=== PATIENT | female | born 1960 | race Caucasian/White ===

== ENCOUNTER 2016-12-24 00:17 | Emergency (ER) | payer OTHER ==
[~2016-12-24] VITALS: Ht 167.6 cm; Wt 82.1 kg
[~2016-12-24 00:17] MED LIST: /ADVA50050; /ADVA50050 IN; /CELE20CA; /CELE20CA OR; /ESOM40CA; /ESOM40CA OR; ALBU17IN2; ALBU83IN; ASPI81TA83 OR; Alpha Lipoic Acid PO; BABY81CH; BIOTPOW20 PO; CETI10TA; CETI10TA OR; DETR4CAP; DETR4CAP OR; FOLI5CAP; FOLI5CAP OR; GLUC500T3; GLUC500T3 OR; GLUCOSAMINE; INSULIN PUMP; INSULIN PUMP SC; LIDO5DIS; LIDO5DIS EX; LISI10TA4; LISI10TA4 OR; METH2.5T; METH2.5T OR; NAPR500T; OYST500T; OYST500T OR; PRED10TA2; PRED5TAB; ROBA500T; ROBA750T; ROBA750T OR; SING10TA31; SING10TA31 OR; SYMLIN INJ; THERGRAN; THERGRAN OR; TRAM50TA2; TRAM50TA2 OR; VIT D 2000; VITA100T OR; VITA200C; VITA400C OR; VITA500C OR; VITA500T; VOLT1GEL; VOLT1GEL EX; VOLT75TA; VYTO10TA5; VYTO10TA5 OR; [UNRECOGNIZED DRUG - OTHER] SC; plaquenil PO; vit b 12 PO
[2016-12-24] MEDS ORDERED: ONDANSETRON 4 MG ORAL DISINTEGRATING TAB (S0181) PO ONE (01:45)
[2016-12-24] MEDS ORDERED: NS 500 ML IV ONE ×2 (01:45→03:00)
[2016-12-24] MEDS ORDERED: ONDANSETRON 4MG/2ML VIAL (J2405) IV ONE (01:45)
[2016-12-24 01:47] LABS: BASO % 0.3 % (0.0-1.0); EOS # 0.1 K/mm3 (0.0-0.50); EOS % 1.1 % (0.0-3.0); LARGE UNSTAINED CELL # 0.1 K/mm3 (0.0-0.4); LARGE UNSTAINED CELL % 0.8 % (0.0-4.0); LYMPH # 0.3 K/mm3 (1.5-4.5); LYMPH % 3.1 % (24.0-44.0); MEAN CORPUSCULAR HEMOGLOBIN 28.3 pg (27.0-33.0); MEAN CORPUSCULAR HGB CONC 32.2 g/dl (32.0-36.5); MEAN CORPUSCULAR VOLUME 87.9 fl (80.0-96.0); MONO # 0.4 K/mm3 (0.0-0.8); MONO % 4.3 % (0.0-5.0); NEUTROPHILS # 7.5 K/mm3 (1.8-7.7); NEUTROPHILS % 90.5 % (36.0-66.0); PLATELET COUNT, AUTOMATED 241 k/mm3 (150-450); RED CELL DISTRIBUTION WIDTH 12.7 % (11.5-14.5); WHITE BLOOD COUNT 8.3 K/mm3 (4.0-10.0)
[2016-12-24 02:31] LABS: ALBUMIN 3.9 GM/DL (3.2-5.2); ALBUMIN/GLOBULIN RATIO 1.18 (1.00-1.93); ALKALINE PHOSPHATASE 76 U/L (45-117); ALT/SGPT 49 U/L (12-78); AMYLASE 34 U/L (25-115); ANION GAP 10 MEQ/L (8-16); AST/SGOT 41 U/L (15-37); BILIRUBIN,DIRECT 0.2 MG/DL (0.0-0.2); BILIRUBIN,TOTAL 0.7 MG/DL (0.2-1.0); BLOOD UREA NITROGEN 23 MG/DL (7-18); CARBON DIOXIDE LEVEL 26 MEQ/L (21-32); CHLORIDE LEVEL 107 MEQ/L (98-107); CREATININE FOR GFR 0.89 MG/DL (0.55-1.02); GLOMERULAR FILTRATION RATE > 60.0 (>51); GLUCOSE, FASTING 220 MG/DL (70-105); SODIUM LEVEL 143 MEQ/L (136-145); TOTAL PROTEIN 7.2 GM/DL (6.4-8.2)
[2016-12-24] MEDS ORDERED: REGL10TA6 PO (03:08)
[2016-12-24 03:35] VITALS: BP 114/58
== END 2016-12-24 03:36 | disposition home or self-care (01) ==
LOC: M ED 03:15
DX: A09 Infectious gastroenteritis and colitis, unspecified (principal); E10.9 Type 1 diabetes mellitus without complications; J45.909 Unspecified asthma, uncomplicated; Z88.8 Allergy status to other drugs, medicaments and biological substances; Z79.82 Long term (current) use of aspirin; Z79.899 Other long term (current) drug therapy
CPT/HCPCS: 80048; 80076; 82150; 83690; 85025; 96374; 99282; J2405

== ENCOUNTER → 2017-01-14 | Outpatient (REF) | payer OTHER ==
[~2017-01-14] MED LIST changes: +REGL10TA6 PO
[2017-01-14 12:48] LABS: BASO % 0.8 % (0.0-1.0); EOS # 0.1 K/mm3 (0.0-0.50); EOS % 1.6 % (0.0-3.0); LARGE UNSTAINED CELL # 0.1 K/mm3 (0.0-0.4); LARGE UNSTAINED CELL % 1.4 % (0.0-4.0); LYMPH # 1.5 K/mm3 (1.5-4.5); LYMPH % 29.1 % (24.0-44.0); MEAN CORPUSCULAR HEMOGLOBIN 27.9 pg (27.0-33.0); MEAN CORPUSCULAR HGB CONC 31.2 g/dl (32.0-36.5); MEAN CORPUSCULAR VOLUME 89.7 fl (80.0-96.0); MONO # 0.4 K/mm3 (0.0-0.8); NEUTROPHILS # 3.1 K/mm3 (1.8-7.7); NEUTROPHILS % 60.1 % (36.0-66.0); PLATELET COUNT, AUTOMATED 256 k/mm3 (150-450); WHITE BLOOD COUNT 5.2 K/mm3 (4.0-10.0)
[2017-01-14 12:49] LABS: ALBUMIN 3.7 GM/DL (3.2-5.2); ALBUMIN/GLOBULIN RATIO 1.28 (1.00-1.93); ALKALINE PHOSPHATASE 73 U/L (45-117); ALT/SGPT 57 U/L (12-78); ANION GAP 7 MEQ/L (8-16); AST/SGOT 31 U/L (15-37); BILIRUBIN,TOTAL 0.4 MG/DL (0.2-1.0); BLOOD UREA NITROGEN 21 MG/DL (7-18); CALCIUM LEVEL 9.1 MG/DL (8.5-10.1); CARBON DIOXIDE LEVEL 29 MEQ/L (21-32); CHLORIDE LEVEL 108 MEQ/L (98-107); CHOLESTEROL LEVEL 144 MG/DL (<200); CREATININE FOR GFR 0.73 MG/DL (0.55-1.02); GLOMERULAR FILTRATION RATE > 60.0 (>51); GLUCOSE, FASTING 143 MG/DL (70-105); POTASSIUM SERUM 4.2 MEQ/L (3.5-5.1); SODIUM LEVEL 144 MEQ/L (136-145); TOTAL PROTEIN 6.6 GM/DL (6.4-8.2); TRIGLYCERIDES LEVEL 65 MG/DL (<150)
== END ==
LOC: M LABDRAW1 11:33
PROVIDERS: ATTEND Family Medicine
DX: E10.9 Type 1 diabetes mellitus without complications (principal)

== ENCOUNTER 2017-05-14 07:29 | Inpatient (IN) | payer OTHER ==
[~2017-05-14] VITALS: Ht 165.1 cm; Wt 87.1 kg
[2017-05-14] MEDS ORDERED: MONT10TA2 PO (07:53)
[2017-05-14] MEDS ORDERED: INSUH10VL SC (07:53)
[2017-05-14] MEDS ORDERED: METH75TA PO (07:53)
[2017-05-14] MEDS ORDERED: GLUC750T2 PO (07:53)
[2017-05-14] MEDS ORDERED: LISI10TA4 PO (07:53)
[2017-05-14] MEDS ORDERED: IPRA6SP (07:53)
[2017-05-14] MEDS ORDERED: OLOP1DRO OU (07:53)
[2017-05-14] MEDS ORDERED: GLUC1KIT SC (07:53)
[2017-05-14] MEDS ORDERED: TOLT1CAP PO (07:53)
[2017-05-14] MEDS ORDERED: SIMV20TA2 PO (07:53)
[2017-05-14] MEDS ORDERED: TRAM50TA2 PO (07:53)
[2017-05-14] MEDS ORDERED: CELE1CAP9 PO (07:53)
[2017-05-14] MEDS ORDERED: HYDR200T3 PO ×2 (07:53→09:38)
[2017-05-14] MEDS ORDERED: CETI10TA PO (07:53)
[2017-05-14] MEDS ORDERED: LIDO1PAD TOP (07:53)
[2017-05-14] MEDS ORDERED: ZETI10TA30 PO (07:53)
[2017-05-14] MEDS ORDERED: ASPI81TA18 PO (07:53)
[2017-05-14] MEDS ORDERED: NS 1,000 ML IV ONE ×2 (08:45→12:15)
[2017-05-14] MEDS ORDERED: ONDANSETRON 4MG/2ML VIAL (J2405) IV ONE (08:45)
[2017-05-14] MEDS: MORPHINE 2 MG/ML 1ML SYRINGE IV PRN ×2 (08:57→11:49)
[2017-05-14 08:58] LABS: BASO % 0.2 % (0.0-1.0); EOS % 0.3 % (0.0-3.0); LARGE UNSTAINED CELL # 0.1 K/mm3 (0.0-0.4); LARGE UNSTAINED CELL % 0.4 % (0.0-4.0); LYMPH # 0.6 K/mm3 (1.5-4.5); LYMPH % 4.5 % (24.0-44.0); MEAN CORPUSCULAR HEMOGLOBIN 29.5 pg (27.0-33.0); MEAN CORPUSCULAR HGB CONC 32.8 g/dl (32.0-36.5); MONO # 0.8 K/mm3 (0.0-0.8); MONO % 6.3 % (0.0-5.0); NEUTROPHILS # 10.4 K/mm3 (1.8-7.7); NEUTROPHILS % 88.3 % (36.0-66.0); PLATELET COUNT, AUTOMATED 263 k/mm3 (150-450); RED CELL DISTRIBUTION WIDTH 13.2 % (11.5-14.5); WHITE BLOOD COUNT 11.8 K/mm3 (4.0-10.0)
[2017-05-14] MEDS ORDERED: LIDOCAINE 5% (LIDODERM) PATCH TOP SCH (09:00)
[2017-05-14] MEDS: OLOPATADINE 0.1% OPHTH SOL 5ML(PATANOL) OU SCH (09:00)
[2017-05-14 09:19] LABS: ALBUMIN/GLOBULIN RATIO 1.33 (1.00-1.93); ALKALINE PHOSPHATASE 88 U/L (45-117); ALT/SGPT 50 U/L (12-78); AMYLASE 51 U/L (25-115); ANION GAP 8 MEQ/L (8-16); AST/SGOT 26 U/L (15-37); BILIRUBIN,DIRECT 0.2 MG/DL (0.0-0.2); BILIRUBIN,TOTAL 0.8 MG/DL (0.2-1.0); BLOOD UREA NITROGEN 25 MG/DL (7-18); CALCIUM LEVEL 9.6 MG/DL (8.5-10.1); CARBON DIOXIDE LEVEL 26 MEQ/L (21-32); CHLORIDE LEVEL 102 MEQ/L (98-107); CREATININE FOR GFR 0.95 MG/DL (0.55-1.02); GLOMERULAR FILTRATION RATE > 60.0 (>51); GLUCOSE, FASTING 357 MG/DL (70-105); SODIUM LEVEL 136 MEQ/L (136-145)
[2017-05-14 09:37] LABS: INR 0.87
[2017-05-14] MEDS ORDERED: ASCO500T PO (09:38)
[2017-05-14] MEDS ORDERED: ISOVUE-370 76% 100ML VIAL (Q9967) As Ordered ONE (09:59)
--- NOTE | 2017-05-14 10:04 | REP ---
PA and lateral chest: There are no comparisons. The lung goldstein are clear. The cardiac size is normal The rosina, mediastinum, and bony thorax are unremarkable. Impression: Negative PA and lateral chest. Signed by Mauri Hightower MD 05/14/2017 09:54 A
--- NOTE | 2017-05-14 11:08 | REP ---
CT ABDOMEN AND PELVIS WITH IV CONTRAST: TECHNIQUE: Axial contrast enhanced images from the lung bases to the pubic symphysis using 100 mL Isovue 370 intravenous contrast material with multiplanar reformations. Visualized lung bases demonstrates no evidence of acute infiltrate. The liver, spleen, adrenals, pancreas, and left kidney are unremarkable. Right kidney demonstrates a small cyst in the lower pole cortex measuring about 1.1 cm in diameter. There is no hydronephrosis bilaterally. There is no abdominal aortic aneurysm with mild scattered atherosclerotic calcifications. There is no adenopathy. There is no free air or free fluid. There is diffuse thickening of the left transverse colon and also of the descending colon compatible with colitis. No other area of bowel wall thickening is seen. In the pelvis there is a cyst of the left ovary measuring 3.1 cm in maximum diameter. No other pelvic mass is seen. Urinary bladder is unremarkable. IMPRESSION: Diffuse thickening of the left transverse colon and descending colon compatible with colitis. No free air or free fluid. Left ovarian cyst measures 3.1 cm in maximum diameter. Signed by Mauri Henning MD 05/14/2017 03:28 P
[2017-05-14] MEDS ORDERED: metroNIDAZOLE 500 MG in APPROPRIATE DILUENT 1 EA IV ONE (12:15)
--- NOTE | 2017-05-14 13:05 | HPEPDOC ---
Medical History and Physical Date of Admission 05/14/17 History and Physical ATTENDING: Dr. Min PCP: Dr Guillermina Mcfarlane CC: N/V/D HPI: 57yoF with a past medical history significant for IDDM on insulin pump as managed by Connie, AIDA, HTN, RA, Asthma who states she noticed abdominal cramping around midnight. Subsequently began to have N/V about every 30 min followed by diarrhea. Tried Imodium which was ineffective. Reported to ED for evaluation with assistance of her Dtr. In ED Pt had persistent N/V, abdominal discomfort and diarrhea with BRB noted. Has felt chilled. Denies any fevers, weakness, fatigue, LEMOS, CP, SOB, cough, palpitations, changes in bladder habits. Upon presentation to the hospital the patient was found to have Colitis, thus the hospitalist team was consulted. PMHx: IDDM. Uses pump as per Connie. Asthma. Follows with Dr Burnette. allergic rhinitis. RA. [place]. Chronic back pain. Dr [facility] OAB HTN Dyslipidemia PSHX: CTR Colonoscopy 09/01 Iván. Nml. SOCHX: Resides in: [facility] Marital Status: Kids: one Employment: Works at [employer] PT Tobacco use: denies ETOH: denies Illicit Drugs: Denies Recent travel: denies Advanced directives: denies FAMHX: Mother: Alive, Lupus, PUD. Father: stomach Ca Siblings: Alive, well Children: Alive, well Unexpected deaths due to medical reasons: None. ROS: As noted in HPI, otherwise 11pt ROS of systems reviewed and remarkable only for LMP NA, post menopausal. PE: GEN: 57yoF, appears stated age. Well-nourished, well developed. No acute distress. Alert and oriented x 3. Pleasant, interactive. HEENT: Normocephalic, atraumatic. Pupils are equal, round, and reactive to light. Extraocular movements are intact. No nystagmus appreciated. Sclera are nonicteric. Conjunctiva without injection. Nose midline. Nasal turbinates without bogginess. No facial asymmetry. Moist mucous membranes. Dentition fair. Pharynx pink and moist, no cobblestoning. Neck supple, trachea midline. No lymphadenopathy or thyromegaly appreciated. CHEST: Regular rate and rhythm, +S1, +S2 LUNGS: Clear to auscultation bilaterally. No wheezes, rales, or rhonchi. Breathing appears symmetric and easy. Patient is speaking in full sentences. No accessory muscle use. ABD: Round, soft, non-tender, non-distended. +Bowel sounds throughout. No rebound or guarding. No costovertebral angle tenderness. EXT: Pulses 2+ bilaterally dorsalis pedis and radial. No lower extremity edema appreciated. SKIN: [place], dry, warm. Capillary refill <2sec. No rashes. NEURO: Alert and oriented x 3. Cranial nerves III-XII are intact. No focal deficits appreciated. CXR: Negative PA and lateral chest. CT: Diffuse thickening of the left transverse colon and descending colon compatible with colitis. No free air or free fluid. Left ovarian cyst measures 3.1 cm in maximum diameter. BLOOD CULTURES: pending A&P: 57yoF with a past medical history significant for IDDM on insulin pump as managed by AIDA Rosales, HTN, RA, Asthma who states she noticed abdominal cramping around midnight. Subsequently began to have N/V about every 30 min followed by diarrhea. Tried Imodium which was ineffective. Reported to ED for evaluation with assistance of her Dtr. In ED Pt had persistent N/V, abdominal discomfort and diarrhea with BRB noted. Has felt chilled. 1. The patient will be admitted to M/S for at least [address] Min's service. Pt is discussed with Dr Capps. 2. Colitis. UA/UC, BC, GI panel pending. IVF at 100cc/hr, Clear liquids, IV Zofran prn. Continue with IV Cipro/Flagyl. Pt with episode of Colitis 01/04 as well. Last colonoscopy 09/01 reported to be normal. 3. IDDM. Pt to continue to utilize pump. Temporarily hold ASA. 4. HTN. Lisinopril with hold parameters. 5. Dyslipidemia. Cont Statin/Zetia 6. Asthma/Allergies. Cont outpt regimen. 7. Chronic Back pain. Tramadol TID/Robaxin/Lidoderm patch. Temporarily hold Celebrex. 8. RA. Cont Hydroxychloroquine. 9. OAB. Cont outpt regimen. DVT prophylaxis. The patient is a Full code. Vital Signs Vital Signs Date Time Temp Pulse Resp B/P (MAP) Pulse Ox O2 Delivery O2 Flow Rate FiO2 7/25/17 12:47 16 05/14/17 09:21 05/14/17 07:40 97.4 100 100 Room Air Laboratory Data Labs 24H Laboratory Tests 2 05/14/17 08:46: White Blood Count 11.8H, Red Blood Count 4.41, Hemoglobin 13.0, Hematocrit 39.7 , Mean Corpuscular Volume 90.0, Mean Corpuscular Hemoglobin 29.5, Mean Corpuscular Hemoglobin Concent 32.8, Red Cell Distribution Width 13.2, Platelet Count 263, Neutrophils (%) (Auto) 88.3H, Lymphocytes (%) (Auto) 4.5L, Monocytes (%) (Auto) 6.3H, Eosinophils (%) (Auto) 0.3, Basophils (%) (Auto) 0.2, Neutrophils # (Auto) 10.4H, Lymphocytes # (Auto) 0.6L, Monocytes # (Auto) 0.8, Eosinophils # (Auto) 0.0, Basophils # (Auto) 0.0, Large Unclassified Cells % 0.4 , Large Unclassified Cells # 0.1, Prothrombin Time 11.9L, Prothromb Time International Ratio 0.87, Activated Partial Thromboplast Time 21.7L, Anion Gap 8 , Glomerular Filtration Rate > 60.0, Lactic Acid Level 1.9, Calcium Level 9.6, Aspartate Amino Transf (AST/SGOT) 26, Alanine Aminotransferase (ALT/SGPT) 50, Alkaline Phosphatase 88, Total Bilirubin 0.8, Direct Bilirubin 0.2, Total Protein 7.0, Albumin 4.0, Albumin/Globulin Ratio 1.33, Amylase Level 51, Lipase 122 CBC/BMP Laboratory Tests 05/14/17 08:46 Red Blood Count 4.41, Mean Corpuscular Volume 90.0, Mean Corpuscular Hemoglobin 29.5, Mean Corpuscular Hemoglobin Concent 32.8, Red Cell Distribution Width 13.2 , Neutrophils (%) (Auto) 88.3 H, Lymphocytes (%) (Auto) 4.5 L, Monocytes (%) ( Auto) 6.3 H, Eosinophils (%) (Auto) 0.3, Basophils (%) (Auto) 0.2, Neutrophils # (Auto) 10.4 H, Lymphocytes # (Auto) 0.6 L, Monocytes # (Auto) 0.8, Eosinophils # (Auto) 0.0, Basophils # (Auto) 0.0 Microbiology Microbiology 05/14/17 Blood Culture, Received Pending 05/14/17 Blood Culture, Received Pending Home Medications Scheduled (Olopatadine HCl) 0.1 % Kevin, 2 DROP OU DAILY (Lidocaine) 5 % Pad, 1 PATCH TOP DAILY APPLIES TO BACK/SHOULDER (Glucosamine/Chondroitin T 750-600 mg) 1 Tab Tab, 1 TAB PO BID (Celecoxib) 200 Mg Cap, 200 MG PO DAILY (Aspirin EC Low Dose) 81 Mg Tab, 81 MG PO DAILY Ascorbic Acid (Ascorbic Acid) 500 Mg Tab, 500 MG PO DAILY Cetirizine HCl (Cetirizine HCl) 10 Mg Tab, 10 MG PO DAILY Ezetimibe (Zetia) 10 Mg Tab, 10 MG PO DAILY Hydroxychloroquine Sulfate (Hydroxychloroquine Sulfat) 200 Mg Tab, 200 MG PO Q2D 200MG ON ODD DAYS, 400MG ON EVEN DAYS Hydroxychloroquine Sulfate (Hydroxychloroquine Sulfat) 200 Mg Tab, 400 MG PO Q2D 200MG ON ODD DAYS, 400MG ON EVENS DAYS Insulin Aspart (Novolog) 100 U/Ml Inj, 1 DOSE SC ASDIRECTED VIA INSULIN PUMP Lisinopril (Lisinopril) 10 Mg Tab, 10 MG PO DAILY Methocarbamol (Methocarbamol) 750 Mg Tab, 750 MG PO TID Montelukast Sodium (Montelukast Sodium) 10 Mg Tab, 10 MG PO DAILY Simvastatin (Simvastatin) 20 Mg Tab, 20 MG PO DAILY Tolterodine Tartrate (Tolterodine Tartrate ER) 4 Mg Cap, 4 MG PO DAILY Tramadol HCl (Tramadol HCl) 50 Mg Tab, 50 MG PO TID Scheduled PRN Glucagon Rdna (Glucagon Emergency Kit) 1 Mg Kit, 1 DOSE SC for LOW BLOOD SUGAR Ipratropium [place] (Ipratropium [place]) 165 [place]/15 Ml Naspr, 1 SPRAY NA BID PRN for RUNNY NOSE Allergies Coded Allergies: Meloxicam (Verified Allergy, Intermediate, RASH, 01/19/13) Diclofenac (Verified Adverse Reaction, Intermediate, FLECTOR PATCH- ASTHMA , 01/19/13) Leatha Najera May 14, 2017 13:05
[2017-05-14] MEDS ORDERED: HumaLOG INSULIN (NovoLOG) PER UNIT SC PRN (13:15)
[2017-05-14] MEDS ORDERED: IPRATROPIUM 0.06% NASAL SPRAY 15 ML (ATROVENT) PRN (13:15)
[2017-05-14] MEDS ORDERED: ONDANSETRON 4MG/2ML VIAL (J2405) IV PRN (13:15)
[2017-05-14] MEDS ORDERED: CIPROFLOXACIN 400 MG in APPROPRIATE DILUENT 1 EA IV ONE (14:00)
[2017-05-14 15:10] VITALS: BP 136/88
[2017-05-14] MEDS: NS 1,000 ML IV SCH (15:21)
[2017-05-14] MEDS: CETIRIZINE (ZyrTEC) 10 MG TAB PO SCH (16:29)
[2017-05-14] MEDS: HYDROXYCHLOROQUINE 200 MG TAB PO SCH (16:29)
[2017-05-14] MEDS: EZETIMIBE 10 MG TAB (ZETIA) PO SCH (16:29)
[2017-05-14] MEDS: TOLTERODINE TARTRATE 2 MG LA CAP (DETROL LA) PO SCH (16:29)
[2017-05-14] MEDS: LISINOPRIL 10 MG TAB PO SCH (16:30)
[2017-05-14] MEDS: METHOCARBAMOL 750 MG TAB PO SCH ×2 (16:30→21:56)
[2017-05-14] MEDS: traMADol 50 MG TAB PO SCH ×2 (16:31→21:58)
[2017-05-14] MEDS: MONTELUKAST 10 MG TAB PO SCH (16:33)
[2017-05-14 20:00] VITALS: BP 134/66
[2017-05-14] MEDS: SIMVASTATIN 20 MG TAB PO SCH (21:57)
[2017-05-14] MEDS: LIDOCAINE 5% (LIDODERM) PATCH TOP SCH (21:58)
[2017-05-14] MEDS: metroNIDAZOLE 500 MG in APPROPRIATE DILUENT 1 EA IV SCH (22:16)
[2017-05-15] VITALS: BP 126/58
[2017-05-15] MEDS: NS 1,000 ML IV SCH ×3 (00:58→22:27)
[2017-05-15] MEDS: CIPROFLOXACIN 400 MG in APPROPRIATE DILUENT 1 EA IV SCH ×2 (00:58→12:37)
[2017-05-15] MEDS: metroNIDAZOLE 500 MG in APPROPRIATE DILUENT 1 EA IV SCH ×3 (05:47→22:26)
[2017-05-15 06:53] LABS: BASO % 0.2 % (0.0-1.0); EOS % 0.4 % (0.0-3.0); LARGE UNSTAINED CELL # 0.1 K/mm3 (0.0-0.4); LARGE UNSTAINED CELL % 0.5 % (0.0-4.0); LYMPH # 1.3 K/mm3 (1.5-4.5); LYMPH % 10.8 % (24.0-44.0); MEAN CORPUSCULAR HEMOGLOBIN 29.4 pg (27.0-33.0); MEAN CORPUSCULAR HGB CONC 32.6 g/dl (32.0-36.5); MONO # 0.7 K/mm3 (0.0-0.8); MONO % 6.1 % (0.0-5.0); NEUTROPHILS # 9.7 K/mm3 (1.8-7.7); PLATELET COUNT, AUTOMATED 236 k/mm3 (150-450); RED CELL DISTRIBUTION WIDTH 13.5 % (11.5-14.5); WHITE BLOOD COUNT 11.8 K/mm3 (4.0-10.0)
[2017-05-15 07:08] LABS: ALBUMIN 3.2 GM/DL (3.2-5.2); ALKALINE PHOSPHATASE 73 U/L (45-117); ALT/SGPT 37 U/L (12-78); ANION GAP 4 MEQ/L (8-16); AST/SGOT 21 U/L (15-37); BILIRUBIN,TOTAL 0.6 MG/DL (0.2-1.0); CALCIUM LEVEL 8.6 MG/DL (8.5-10.1); CARBON DIOXIDE LEVEL 28 MEQ/L (21-32); CHLORIDE LEVEL 107 MEQ/L (98-107); CREATININE FOR GFR 0.71 MG/DL (0.55-1.02); GLOMERULAR FILTRATION RATE > 60.0 (>51); GLUCOSE, FASTING 177 MG/DL (70-105); MAGNESIUM LEVEL 1.9 MG/DL (1.8-2.4); POTASSIUM SERUM 3.8 MEQ/L (3.5-5.1); SODIUM LEVEL 139 MEQ/L (136-145); TOTAL PROTEIN 6.4 GM/DL (6.4-8.2)
[2017-05-15 07:14] LABS: BLOOD UREA NITROGEN 9 MG/DL (7-18)
[2017-05-15 08:00] VITALS: BP 126/75
[2017-05-15] MEDS: **NOTE PATIENT COMMENT** MISC XX SCH (09:00)
[2017-05-15] MEDS: MONTELUKAST 10 MG TAB PO SCH (09:01)
[2017-05-15] MEDS: traMADol 50 MG TAB PO SCH ×3 (09:01→22:27)
[2017-05-15] MEDS: EZETIMIBE 10 MG TAB (ZETIA) PO SCH (09:02)
[2017-05-15] MEDS: CETIRIZINE (ZyrTEC) 10 MG TAB PO SCH (09:02)
[2017-05-15] MEDS: OLOPATADINE 0.1% OPHTH SOL 5ML(PATANOL) OU SCH (09:02)
[2017-05-15] MEDS: HYDROXYCHLOROQUINE 200 MG TAB PO SCH (09:03)
[2017-05-15] MEDS: TOLTERODINE TARTRATE 2 MG LA CAP (DETROL LA) PO SCH (09:03)
[2017-05-15] MEDS: LISINOPRIL 10 MG TAB PO SCH (09:05)
[2017-05-15] MEDS: METHOCARBAMOL 750 MG TAB PO SCH ×3 (09:05→22:27)
--- NOTE | 2017-05-15 12:47 | IPNPDOC ---
Subjective Date Seen The patient was seen on 05/15/17. Subjective Chief Complaint/HPI The patient is a 57-year-old female admitted with a reason for visit of Colitis , Gastroenteritis. Events since last encounter patient continues to have bloody stools but less than before and also getting thicker. had spike of fever last night , abdominal cramps getting better, no chest pain or sob , no cough or phlegm , continuing her insulin pump sugars are well controlled. Objective Physical Examination General Exam: Positive: Alert, Cooperative, No Acute Distress Eye Exam: Positive: PERRLA, Conjunctiva & lids normal, EOMI, Negative: Sclera icteric ENT Exam: Positive: Atraumatic, Mucous membr. moist/pink, Pharynx Normal Neck Exam: Positive: Supple, Negative: JVD, thyromegaly Chest Exam: Positive: Clear to auscultation, Normal air movement Heart Exam: Positive: Rate Normal, Regular Rhythm, Normal S1, Normal S2, Negative: Murmurs, Rubs Abdomen Exam: Positive: BS Hyperactive, Soft, Negative: Tenderness, Hepatospenomegaly Extremity Exam: Positive: Normal pulses, Negative: Clubbing, Cyanosis, Edema Skin Exam: Positive: Nl turgor and temperature, Negative: Rash, Breakdown Assessment /Plan Problems (1) Colitis Status: Acute Problem Text: will continue with cipro and flagyl , clear liquids and ivf. (2) Diabetes type I Status: Chronic Problem Text: continue with insulin pump with aspart insulin pateint adjusting her own pump. (3) Hypertension Status: Chronic (4) Rheumatoid arthritis Status: Chronic (5) Hyperlipidemia Status: Chronic (6) Overactive bladder Status: Chronic Plan/VTE VTE Prophylaxis Ordered?: Yes VS, I&O, 24H, [facility] Vital Signs/I&O Vital Signs Date Time Temp Pulse Resp B/P (MAP) Pulse Ox O2 Delivery O2 Flow Rate FiO2 05/15/17 09:05 126/95 05/15/17 09:01 16 Room Air 05/15/17 08:00 98.2 92 99 I&O- Last 24 Hours up to 6 AM 05/15/17 05:59 Intake Total 1500 ml Output Total 800 ml Balance 700 ml Laboratory Data 24H LABS Laboratory Tests 2 05/14/17 12:54: Urine Appearance CLEAR, Urine Color YELLOW, Urine pH 7.0, Urine Specific [place] 1.039, Urine Protein NEGATIVE, Urine Glucose (UA) 3+H, Urine Ketones 1+H , Urine Urobilinogen 0.2, Urine Bilirubin NEGATIVE, Urine Leukocyte Esterase NEGATIVE, Urine Blood NEGATIVE, Urine Nitrite NEGATIVE, Urine WBC (Auto) 0, Urine RBC (Auto) 0, Urine Hyaline Casts (Auto) 0, Urine Bacteria (Auto) 1+H, Urine Squamous Epithelial Cells 0, Urine Sperm (Auto) 05/15/17 06:42: White Blood Count 11.8H, Red Blood Count 3.97L, Hemoglobin 11.7L, Hematocrit 35.8L, Mean Corpuscular Volume 90.0, Mean Corpuscular Hemoglobin 29.4, Mean Corpuscular Hemoglobin Concent 32.6, Red Cell Distribution Width 13.5, Platelet Count 236, Neutrophils (%) (Auto) 82.0H, Lymphocytes (%) (Auto) 10.8L, Monocytes (%) (Auto) 6.1H, Eosinophils (%) (Auto) 0.4, Basophils (%) (Auto) 0.2 , Neutrophils # (Auto) 9.7H, Lymphocytes # (Auto) 1.3L, Monocytes # (Auto) 0.7, Eosinophils # (Auto) 0.0, Basophils # (Auto) 0.0, Large Unclassified Cells % 0.5 , Large Unclassified Cells # 0.1, Anion Gap 4L, Glomerular Filtration Rate > 60.0, Blood Urea Nitrogen 9#, Creatinine 0.71, Sodium Level 139, Potassium Level 3.8, Chloride Level 107, Carbon Dioxide Level 28, Calcium Level 8.6, Aspartate Amino Transf (AST/SGOT) 21, Alanine Aminotransferase (ALT/SGPT) 37, Alkaline Phosphatase 73, Total Bilirubin 0.6, Total Protein 6.4, Albumin 3.2, Magnesium Level 1.9, Albumin/Globulin Ratio 1.00 CBC/BMP Laboratory Tests 05/15/17 06:42 Red Blood Count 3.97 L, Mean Corpuscular Volume 90.0, Mean Corpuscular Hemoglobin 29.4, Mean Corpuscular Hemoglobin Concent 32.6, Red Cell Distribution Width 13.5, Neutrophils (%) (Auto) 82.0 H, Lymphocytes (%) (Auto) 10.8 L, Monocytes (%) (Auto) 6.1 H, Eosinophils (%) (Auto) 0.4, Basophils (%) ( Auto) 0.2, Neutrophils # (Auto) 9.7 H, Lymphocytes # (Auto) 1.3 L, Monocytes # ( Auto) 0.7, Eosinophils # (Auto) 0.0, Basophils # (Auto) 0.0, Calcium Level 8.6, Aspartate Amino Transf (AST/SGOT) 21, Alanine Aminotransferase (ALT/SGPT) 37, Alkaline Phosphatase 73, Total Bilirubin 0.6, Total Protein 6.4, Albumin 3.2 Microbiology Microbiology 05/14/17 Blood Culture - Preliminary, Resulted No growth after 24 hours . All specim... 05/14/17 Blood Culture - Preliminary, Resulted No growth after 24 hours . All specim... 05/14/17 Gastrointestinal Tract Panel (PCR) - Final, Complete 05/14/17 Urine Culture - Final, Complete CHAPINCITO KEN MD May 15, 2017 12:47
[2017-05-15 16:00] VITALS: BP 135/68
[2017-05-15 20:00] VITALS: BP 131/62
[2017-05-15] MEDS: LIDOCAINE 5% (LIDODERM) PATCH TOP SCH (22:26)
[2017-05-15] MEDS: SIMVASTATIN 20 MG TAB PO SCH (22:27)
[2017-05-16] VITALS: BP 121/65
[2017-05-16] MEDS: CIPROFLOXACIN 400 MG in APPROPRIATE DILUENT 1 EA IV SCH (01:59)
[2017-05-16] MEDS: metroNIDAZOLE 500 MG in APPROPRIATE DILUENT 1 EA IV SCH (06:45)
[2017-05-16 06:47] LABS: BASO % 0.8 % (0.0-1.0); EOS # 0.1 K/mm3 (0.0-0.50); EOS % 1.5 % (0.0-3.0); LARGE UNSTAINED CELL # 0.1 K/mm3 (0.0-0.4); LARGE UNSTAINED CELL % 1.5 % (0.0-4.0); MEAN CORPUSCULAR HEMOGLOBIN 29.6 pg (27.0-33.0); MEAN CORPUSCULAR HGB CONC 33.4 g/dl (32.0-36.5); MEAN CORPUSCULAR VOLUME 88.6 fl (80.0-96.0); MONO # 0.6 K/mm3 (0.0-0.8); NEUTROPHILS # 4.2 K/mm3 (1.8-7.7); NEUTROPHILS % 61.2 % (36.0-66.0); PLATELET COUNT, AUTOMATED 179 k/mm3 (150-450); RED CELL DISTRIBUTION WIDTH 13.1 % (11.5-14.5); WHITE BLOOD COUNT 6.9 K/mm3 (4.0-10.0)
[2017-05-16 07:00] LABS: ALBUMIN 2.8 GM/DL (3.2-5.2); ALBUMIN/GLOBULIN RATIO 1.04 (1.00-1.93); ALKALINE PHOSPHATASE 60 U/L (45-117); ALT/SGPT 31 U/L (12-78); ANION GAP 6 MEQ/L (8-16); AST/SGOT 21 U/L (15-37); BILIRUBIN,TOTAL 0.5 MG/DL (0.2-1.0); BLOOD UREA NITROGEN 7 MG/DL (7-18); CALCIUM LEVEL 8.3 MG/DL (8.5-10.1); CARBON DIOXIDE LEVEL 29 MEQ/L (21-32); CHLORIDE LEVEL 105 MEQ/L (98-107); CREATININE FOR GFR 0.63 MG/DL (0.55-1.02); GLOMERULAR FILTRATION RATE > 60.0 (>51); GLUCOSE, FASTING 85 MG/DL (70-105); POTASSIUM SERUM 3.4 MEQ/L (3.5-5.1); SODIUM LEVEL 140 MEQ/L (136-145); TOTAL PROTEIN 5.5 GM/DL (6.4-8.2)
[2017-05-16 08:00] VITALS: BP 114/58
[2017-05-16] MEDS: **NOTE PATIENT COMMENT** MISC XX SCH (09:00)
[2017-05-16] MEDS: EZETIMIBE 10 MG TAB (ZETIA) PO SCH (09:08)
[2017-05-16] MEDS: OLOPATADINE 0.1% OPHTH SOL 5ML(PATANOL) OU SCH (09:08)
[2017-05-16] MEDS: CETIRIZINE (ZyrTEC) 10 MG TAB PO SCH (09:08)
[2017-05-16] MEDS: TOLTERODINE TARTRATE 2 MG LA CAP (DETROL LA) PO SCH (09:09)
[2017-05-16] MEDS: HYDROXYCHLOROQUINE 200 MG TAB PO SCH (09:09)
[2017-05-16] MEDS: METHOCARBAMOL 750 MG TAB PO SCH ×3 (09:09→20:28)
[2017-05-16] MEDS: LISINOPRIL 10 MG TAB PO SCH (09:09)
[2017-05-16] MEDS: MONTELUKAST 10 MG TAB PO SCH (09:10)
[2017-05-16] MEDS: traMADol 50 MG TAB PO SCH ×3 (09:10→20:29)
[2017-05-16] MEDS: NS 1,000 ML IV SCH (09:13)
--- NOTE | 2017-05-16 11:57 | IPNPDOC ---
Subjective Date Seen The patient was seen on 05/16/17. Subjective Chief Complaint/HPI The patient is a 57-year-old female admitted with a reason for visit of Colitis , Gastroenteritis. Events since last encounter no further abdominal pain , no further dirrhea or blood per rectum overnight. no fever or chills, no chest pain or sob , sugars well controlled. Objective Physical Examination General Exam: Positive: Alert, Cooperative, No Acute Distress Eye Exam: Positive: PERRLA, Conjunctiva & lids normal, EOMI, Negative: Sclera icteric ENT Exam: Positive: Atraumatic, Mucous membr. moist/pink, Pharynx Normal Neck Exam: Positive: Supple, Negative: JVD, thyromegaly Chest Exam: Positive: Clear to auscultation, Normal air movement Heart Exam: Positive: Rate Normal, Regular Rhythm, Normal S1, Normal S2, Negative: Murmurs, Rubs Abdomen Exam: Positive: BS Hyperactive, Soft, Negative: Tenderness, Hepatospenomegaly Extremity Exam: Positive: Normal pulses, Negative: Clubbing, Cyanosis, Edema Skin Exam: Positive: Nl turgor and temperature, Negative: Rash, Breakdown Assessment /Plan Problems (1) Colitis Status: Acute Problem Text: will continue with cipro and flagyl advance diet. (2) Diabetes type I Status: Chronic Problem Text: continue with insulin pump with aspart insulin pateint adjusting her own pump. (3) Hypertension Status: Chronic (4) Rheumatoid arthritis Status: Chronic (5) Hyperlipidemia Status: Chronic (6) Overactive bladder Status: Chronic Plan/VTE VTE Prophylaxis Ordered?: Yes VS, I&O, 24H, Fishbone Vital Signs/I&O Vital Signs Date Time Temp Pulse Resp B/P (MAP) Pulse Ox O2 Delivery O2 Flow Rate FiO2 05/16/17 09:10 16 Room Air 05/16/17 09:09 114/58 05/16/17 08:00 97.9 95 98 I&O- Last 24 Hours up to 6 AM 05/16/17 05:59 Intake Total 1560 ml Output Total 2200 ml Balance -640 ml Laboratory Data 24H LABS Laboratory Tests 2 05/16/17 06:30: White Blood Count 6.9, Red Blood Count 3.62L, Hemoglobin 10.7L, Hematocrit 32.1L , Mean Corpuscular Volume 88.6, Mean Corpuscular Hemoglobin 29.6, Mean Corpuscular Hemoglobin Concent 33.4, Red Cell Distribution Width 13.1, Platelet Count 179, Neutrophils (%) (Auto) 61.2, Lymphocytes (%) (Auto) 27.0, Monocytes ( %) (Auto) 8.0H, Eosinophils (%) (Auto) 1.5, Basophils (%) (Auto) 0.8, Neutrophils # (Auto) 4.2, Lymphocytes # (Auto) 2.0, Monocytes # (Auto) 0.6, Eosinophils # (Auto) 0.1, Basophils # (Auto) 0.0, Large Unclassified Cells % 1.5 , Large Unclassified Cells # 0.1, Anion Gap 6L, Glomerular Filtration Rate > 60.0, Blood Urea Nitrogen 7, Creatinine 0.63, Sodium Level 140, Potassium Level 3.4L, Chloride Level 105, Carbon Dioxide Level 29, Calcium Level 8.3L, Aspartate Amino Transf (AST/SGOT) 21, Alanine Aminotransferase (ALT/SGPT) 31, Alkaline Phosphatase 60, Total Bilirubin 0.5, Total Protein 5.5L, Albumin 2.8L, Albumin/Globulin Ratio 1.04 CBC/BMP Laboratory Tests 05/16/17 06:30 Red Blood Count 3.62 L, Mean Corpuscular Volume 88.6, Mean Corpuscular Hemoglobin 29.6, Mean Corpuscular Hemoglobin Concent 33.4, Red Cell Distribution Width 13.1, Neutrophils (%) (Auto) 61.2, Lymphocytes (%) (Auto) 27.0, Monocytes (%) (Auto) 8.0 H, Eosinophils (%) (Auto) 1.5, Basophils (%) ( Auto) 0.8, Neutrophils # (Auto) 4.2, Lymphocytes # (Auto) 2.0, Monocytes # (Auto ) 0.6, Eosinophils # (Auto) 0.1, Basophils # (Auto) 0.0, Calcium Level 8.3 L, Aspartate Amino Transf (AST/SGOT) 21, Alanine Aminotransferase (ALT/SGPT) 31, Alkaline Phosphatase 60, Total Bilirubin 0.5, Total Protein 5.5 L, Albumin 2.8 L Microbiology Microbiology 05/14/17 Blood Culture - Preliminary, Resulted No Growth after 48 hours. All Specime... 05/14/17 Blood Culture - Preliminary, Resulted No Growth after 48 hours. All Specime... 05/14/17 Gastrointestinal Tract Panel (PCR) - Final, Complete 05/14/17 Urine Culture - Final, Complete CHAPINCITO KEN MD May 16, 2017 11:57
[2017-05-16] MEDS ORDERED: POTASSIUM CHLORIDE 10 MEQ SR TABLET PO ONE (12:00)
[2017-05-16] MEDS: metroNIDAZOLE (FLAGYL) 500 MG TAB PO SCH ×2 (14:16→22:03)
[2017-05-16 16:00] VITALS: BP_SYST 147; BP_SYST 162; BP_DIAS 72; BP_DIAS 79
[2017-05-16] MEDS: CIPROFLOXACIN 500 MG TAB PO SCH (17:53)
[2017-05-16 20:00] VITALS: BP_SYST 123; BP_SYST 145; BP_DIAS 62; BP_DIAS 87
[2017-05-16] MEDS: SIMVASTATIN 20 MG TAB PO SCH (20:28)
[2017-05-16] MEDS: LIDOCAINE 5% (LIDODERM) PATCH TOP SCH (20:29)
[2017-05-17] VITALS: BP 101/53
[2017-05-17] MEDS: CIPROFLOXACIN 500 MG TAB PO SCH (06:21)
[2017-05-17] MEDS: metroNIDAZOLE (FLAGYL) 500 MG TAB PO SCH (06:21)
[2017-05-17 06:51] LABS: EOS # 0.2 K/mm3 (0.0-0.50); EOS % 3.9 % (0.0-3.0); LARGE UNSTAINED CELL # 0.1 K/mm3 (0.0-0.4); LARGE UNSTAINED CELL % 1.7 % (0.0-4.0); LYMPH # 1.9 K/mm3 (1.5-4.5); LYMPH % 34.8 % (24.0-44.0); MEAN CORPUSCULAR HEMOGLOBIN 29.1 pg (27.0-33.0); MEAN CORPUSCULAR HGB CONC 32.6 g/dl (32.0-36.5); MEAN CORPUSCULAR VOLUME 89.3 fl (80.0-96.0); MONO # 0.4 K/mm3 (0.0-0.8); NEUTROPHILS # 2.8 K/mm3 (1.8-7.7); NEUTROPHILS % 51.5 % (36.0-66.0); PLATELET COUNT, AUTOMATED 191 k/mm3 (150-450); RED CELL DISTRIBUTION WIDTH 13.2 % (11.5-14.5); WHITE BLOOD COUNT 5.3 K/mm3 (4.0-10.0)
[2017-05-17 07:10] LABS: ANION GAP 11 MEQ/L (8-16); BLOOD UREA NITROGEN 14 MG/DL (7-18); CARBON DIOXIDE LEVEL 25 MEQ/L (21-32); CHLORIDE LEVEL 108 MEQ/L (98-107); GLOMERULAR FILTRATION RATE > 60.0 (>51); GLUCOSE, FASTING 118 MG/DL (70-105); POTASSIUM SERUM 3.5 MEQ/L (3.5-5.1); SODIUM LEVEL 144 MEQ/L (136-145)
[2017-05-17 07:11] LABS: ALBUMIN 2.9 GM/DL (3.2-5.2); ALKALINE PHOSPHATASE 58 U/L (45-117); ALT/SGPT 34 U/L (12-78); AST/SGOT 23 U/L (15-37); BILIRUBIN,TOTAL 0.5 MG/DL (0.2-1.0); CALCIUM LEVEL 8.5 MG/DL (8.5-10.1); TOTAL PROTEIN 5.8 GM/DL (6.4-8.2)
[2017-05-17] MEDS ORDERED: FLAG500T PO (07:25)
[2017-05-17] MEDS ORDERED: CIPR-249 PO (07:25)
[2017-05-17 08:00] VITALS: BP 122/73
[2017-05-17] MEDS: traMADol 50 MG TAB PO SCH (08:17)
[2017-05-17] MEDS: CETIRIZINE (ZyrTEC) 10 MG TAB PO SCH (08:17)
[2017-05-17] MEDS: METHOCARBAMOL 750 MG TAB PO SCH (08:18)
[2017-05-17] MEDS: HYDROXYCHLOROQUINE 200 MG TAB PO SCH (08:18)
[2017-05-17] MEDS: EZETIMIBE 10 MG TAB (ZETIA) PO SCH (08:18)
[2017-05-17] MEDS: MONTELUKAST 10 MG TAB PO SCH (08:19)
[2017-05-17] MEDS: TOLTERODINE TARTRATE 2 MG LA CAP (DETROL LA) PO SCH (08:19)
[2017-05-17 08:20] VITALS: BP 122/73
[2017-05-17] MEDS: LISINOPRIL 10 MG TAB PO SCH (08:20)
[2017-05-17] MEDS: OLOPATADINE 0.1% OPHTH SOL 5ML(PATANOL) OU SCH (08:20)
[2017-05-17] MEDS: **NOTE PATIENT COMMENT** MISC XX SCH (08:20)
--- NOTE | 2017-05-19 14:28 | DSES ---
DATE OF ADMISSION: 05/16/2017 DATE OF DISCHARGE: 05/17/2017 PRIMARY CARE PROVIDER: Dr. Anamika Mcfarlane DISCHARGE DIAGNOSES: 1. Acute colitis and Acute gastroenteritis. 2. Diabetes type 1, on insulin pump. 3. Hypertension. 4. Rheumatoid arthritis. 5. Hyperlipidemia. 6. Overactive bladder. DISCHARGE MEDICATIONS: - ciprofloxacin 500 mg by mouth twice a day - metronidazole 500 mg by mouth every eight hours - ascorbic acid 500 mg by mouth daily - aspirin 81 mg by mouth daily - celecoxib 200 mg by mouth daily - cetirizine 10 mg by mouth daily - Zetia 10 mg by mouth daily - glucagon emergency kit - glucosamine chondroitin sulfate one tablet by mouth twice a day - hydroxychloroquine sulfate 200 mg by mouth every two days - hydroxychloroquine sulfate 400 mg by mouth every two days - insulin pump with aspart insulin - ipratropium one spray in both nostrils twice a day - lidocaine patch one patch topically daily - lisinopril 10 mg by mouth daily - methocarbamol 750 mg by mouth three times a day - montelukast 10 mg by mouth daily - olopatadine two drops in both eyes daily - simvastatin 20 mg by mouth daily - tolterodine 4 mg by mouth daily - tramadol 50 mg by mouth three times a day HOSPITAL COURSE: This is a 57-year-old female who presented to the hospital with crampy abdominal pain, bloody diarrhea, nausea and vomiting. The patient was diagnosed with acute gastroenteritis and acute colitis. The patient was started on IV fluids, Cipro and Flagyl. The patient responded well to treatment with resolution of her abdominal pain, nausea, vomiting, and her diarrhea. The patient continued her own insulin pump during the hospitalization with well-controlled sugars. On the day of discharge, the patient did not have any complaints, was tolerating regular oral diet, and vital signs were stable and functionally at baseline. PHYSICAL EXAMINATION: VITAL SIGNS: Temperature 98.8, pulse 96, respiratory rate 18, blood pressure 122/73, pulse oximetry 100% on room air. GENERAL: The patient is awake, alert, and oriented times three, sitting up in bed in no acute distress. HEENT: Normocephalic, atraumatic. Moist mucous membranes. Anicteric eyes. CHEST: Clear to auscultation. CARDIOVASCULAR: S1, S2, regular. No rub, murmur or gallop. ABDOMEN: Soft, nontender. Bowel sounds present. EXTREMITIES: No edema. LABORATORY DATA: WBC 5.3, hemoglobin 11.1, platelets 191. Sodium 144, potassium 3.5, chloride 108, bicarbonate 25, BUN 14, creatinine 0.7, glucose 118, calcium 8.5. Liver function tests are normal. Blood cultures show no growth after 72 hours. Gastrointestinal panel negative. CT abdomen and pelvis showed diffuse thickening of the left transverse colon and descending colon compatible with colitis. There is a left ovarian cyst measuring 3.1 cm in diameter. DISPOSITION: The patient is discharged home in stable condition. DISCHARGE INSTRUCTIONS: The patient is to followup with primary care provider in one week. Diet as tolerated. Activity as tolerated. MTDD
== END 2017-05-17 10:38 | disposition home or self-care (01) | DRG 392 ==
LOC: M ED 07:29 → M ED INP 13:06 → M PED 15:06 → OBSVTOIN 05-16 11:58
PROVIDERS: ADMIT Internal Medicine; ATTEND Internal Medicine Nephrology
DX: K52.9 Noninfective gastroenteritis and colitis, unspecified (principal); E10.9 Type 1 diabetes mellitus without complications; J45.909 Unspecified asthma, uncomplicated; M06.9 Rheumatoid arthritis, unspecified; M54.9 Dorsalgia, unspecified; I10 Essential (primary) hypertension; E78.5 Hyperlipidemia, unspecified; N32.81 Overactive bladder; Z79.4 Long term (current) use of insulin; Z79.891 Long term (current) use of opiate analgesic; Z79.899 Other long term (current) drug therapy

== ENCOUNTER → 2017-08-01 | Outpatient (REF) | payer OTHER ==
[~2017-08-01] MED LIST changes: +ASCO500T PO; +ASPI81TA18 PO; +CELE1CAP9 PO; +CETI10TA PO; +CIPR-249 PO; +FLAG500T PO; +GLUC1KIT SC; +GLUC750T2 PO; +HYDR200T3 PO; +INSUH10VL SC; +IPRA6SP; +LIDO1PAD TOP; +LISI10TA4 PO; +METH75TA PO; +MONT10TA2 PO; +OLOP1DRO OU; +SIMV20TA2 PO; +TOLT1CAP PO; +TRAM50TA2 PO; +ZETI10TA30 PO
== END ==
LOC: M LABDRAW1 10:08
PROVIDERS: ATTEND Internal Medicine Rheumatology
DX: M05.19 Rheumatoid lung disease with rheumatoid arthritis of multiple sites (principal); Z51.81 Encounter for therapeutic drug level monitoring; Z79.899 Other long term (current) drug therapy

== ENCOUNTER → 2018-10-16 | Outpatient (REF) | payer OTHER ==
[~2018-10-16] MED LIST changes: -ASPI81TA18 PO; +ASPI81TA52 PO; +GLUC750T13 PO; -GLUC750T2 PO; +OLOP0.1D OU; -OLOP1DRO OU; -TOLT1CAP PO; +TOLT4CAP3 PO
[2018-10-16 11:07] LABS: EOS # 0.2 10^3/uL (0.0-0.50); EOS % 4.5 % (0.0-3.0); HEMATOCRIT 36.9 % (36.0-47.0); HEMOGLOBIN 11.8 g/dl (12.0-15.5); LYMPH # 1.6 10^3/uL (1.5-4.5); MEAN CORPUSCULAR HEMOGLOBIN 28.8 pg (27.0-33.0); MONO # 0.4 10^3/uL (0.0-0.8); MONO % 10.5 % (0.0-5.0); NEUTROPHILS # 1.9 10^3/uL (1.8-7.7); NEUTROPHILS % 44.5 % (36.0-66.0); PLATELET COUNT, AUTOMATED 246 10^3/uL (150-450); WHITE BLOOD COUNT 4.2 10^3/uL (4.0-10.0)
[2018-10-16 11:08] LABS: ALT/SGPT 41 U/L (12-78); C REACTIVE PROTEIN QUANTITATIV < 0.30 MG/DL (0.00-0.30); CREATININE FOR GFR 0.92 MG/DL (0.55-1.30); GLOMERULAR FILTRATION RATE > 60.0 (>51)
[2018-10-16 12:04] LABS: ERYTHROCYTE SEDIMENTATION RATE 16 mm/hr (0-30)
== END ==
LOC: M LABDRAW1 09:32
PROVIDERS: ATTEND Nurse Practitioner
DX: Z79.899 Other long term (current) drug therapy (principal)

== ENCOUNTER → 2019-01-17 | Outpatient (CLI) | payer OTHER | LOC: M LAB 10:38 | PROVIDERS: ATTEND Internal Medicine Endocrinology, Diabetes & Metabolism | DX: E10.40 Type 1 diabetes mellitus with diabetic neuropathy, unspecified (principal) ==

== ENCOUNTER → 2019-01-20 | Outpatient (REF) | payer OTHER ==
[~2019-01-20] MED LIST changes: -/ADVA50050; -/ADVA50050 IN; -/CELE20CA; -/CELE20CA OR; -/ESOM40CA; -/ESOM40CA OR; +ADVA1AER2; +ADVA1AER2 IN; +CELE1CAP4; +CELE1CAP4 OR; +NEXI1CAP3; +NEXI1CAP3 OR
[2019-01-22 14:14] LABS: HPV HYBRID CAPTURE II Negative (Negative)
== END ==
LOC: M LAB REF 13:07
PROVIDERS: ATTEND Family Medicine
DX: Z01.419 Encounter for gynecological examination (general) (routine) without abnormal findings (principal); N95.2 Postmenopausal atrophic vaginitis
CPT/HCPCS: 87624; G0123

== ENCOUNTER 2019-10-11 12:06 | Emergency (ER) | payer OTHER ==
[~2019-10-11] VITALS: Ht 165.1 cm; Wt 90.9 kg
[~2019-10-11 12:06] MED LIST changes: +METH750T2 PO; -METH75TA PO; -SIMV20TA2 PO; +SIMV20TA22 PO; +ZETI10TA16 PO; -ZETI10TA30 PO
[2019-10-11] MEDS ORDERED: BACL10TA2 PO (12:33)
[2019-10-11] MEDS ORDERED: PRED5TA (12:34)
[2019-10-11] MEDS ORDERED: PEPC20TA18 PO (12:34)
[2019-10-11 13:58] VITALS: BP 133/65
== END 2019-10-11 14:00 | disposition home or self-care (01) ==
LOC: M ED 12:06
DX: M25.571 Pain in right ankle and joints of right foot (principal); I10 Essential (primary) hypertension; E11.9 Type 2 diabetes mellitus without complications; J45.909 Unspecified asthma, uncomplicated; Z79.899 Other long term (current) drug therapy; Z79.82 Long term (current) use of aspirin; Z79.4 Long term (current) use of insulin; Z88.8 Allergy status to other drugs, medicaments and biological substances

== ENCOUNTER 2020-05-01 10:59 | Emergency (ER) | payer OTHER ==
[~2020-05-01] VITALS: Ht 167.6 cm; Wt 90.9 kg
[~2020-05-01 10:59] MED LIST changes: +BACL10TA2 PO; -MONT10TA2 PO; +MONT10TA4 PO; +PEPC20TA18 PO; +PRED5TA
[2020-05-01] MEDS ORDERED: PERCOCET 5MG/325MG TAB PO ONE (11:30)
[2020-05-01 13:10] VITALS: BP 129/64
[2020-05-01] MEDS ORDERED: PERC5TAB12 PO (13:35)
--- NOTE | 2020-05-01 23:31 | REP ---
RIGHT SHOULDER, COMPLETE, 05/01/2020. CLINICAL HISTORY: Fall, trauma. FINDINGS: There is a slightly impacted fracture at the surgical neck of the humeral head but without subluxation or dislocation from the glenoid. Small soft tissue calcification adjacent to the greater tuberosity may reflect calcific tendinopathy. Clavicle shows no fracture, and the AC joint shows no widening, nor elevation of the clavicle at that site. Visualized ribs intact. Scapula without fracture. IMPRESSION: 1. Mildly impacted surgical neck fracture of the humeral head without significant angulation or displacement and no subluxation or dislocation. There is one tiny calcification adjacent to the greater tuberosity humeral head that may reflect some calcific tendinopathy. Electronically Signed by Danielito Sims MD 05/02/2020 08:33 A
--- NOTE | 2020-05-01 23:33 | REP ---
RIGHT HUMERUS, 05/01/2020. COMPARISON: Shoulder and elbow series this date. CLINICAL HISTORY: Trauma, patient fell. FINDINGS: There is a proximal metaphyseal fracture of the humerus at the surgical neck with slight impaction. There may be a small butterfly fragment medially. A small calcification suggesting calcific tendinopathy about the greater tuberosity noted. The remainder of the humerus, visible shoulder and elbow on these images are intact. IMPRESSION: 1. Mildly impacted fracture surgical neck of the proximal humerus without subluxation or dislocation. 2. Tiny calcification suggesting calcific tendinopathy about the greater tuberosity humeral head. Electronically Signed by Danielito Sims MD 05/02/2020 08:33 A
--- NOTE | 2020-05-01 23:35 | REP ---
RIGHT ELBOW, COMPLETE, 05/01/2020. CLINICAL HISTORY: Trauma, patient fell. TECHNIQUE: Three views are provided. Technologist notes indicate it was very difficult to position the patient because of proximal humeral injury. Therefore, these are less than optimal projections for elbow imaging. COMPARISON: Humerus today. FINDINGS. Because of the difficulties with positioning, normal anatomy relationships are not displayed. That said, I cannot confirm a definite fracture, subluxation, or dislocation, but the exam would be less sensitive. The radial head and capitellum do appear to have normal relationship on one of these views, and that determination is difficult on others. No gross evidence for fracture of the distal humerus, proximal radius, or ulna. IMPRESSION: 1. Very limited exam due to the proximal humeral fracture and difficulties in positioning for the elbow series. If the patient has significant elbow pain or is unable to extend the arm, then orthopedic consultation necessary. No gross evidence of fracture. Electronically Signed by Danielito Sims MD 05/02/2020 08:34 A
--- NOTE | 2020-05-02 00:10 | REP ---
RIGHT FIFTH FINGER SERIES, 05/01/2020. CLINICAL HISTORY: Trauma, patient fell. FINDINGS: Four views of the 5th finger and some of the adjacent 4th are included with an avulsion off the dorsal aspect of the distal phalanx at the DIP joint of the 5th digit. There is also soft tissue swelling about the PIP joint without visible fracture or avulsion. The MCP joint and proximal phalanx were normal. The metacarpal is intact. The 4th digit shows soft tissue swelling about the PIP and DIP joints. There is a spur from the dorsal ulnar aspect of the 4th digit proximal phalanx near the PIP joint. No definite acute fracture there. IMPRESSION: 1. Avulsion at the dorsal aspect of the proximal articular surface distal phalanx 5th finger. Seen only on the lateral view. Soft tissue swelling about IP joints of the 5th finger and the PIP joint of the 4th finger. No other fractures. There is a bone spur off the dorsal ulnar aspect of the distal head of the proximal phalanx of the 4th digit, not a fracture. Electronically Signed by Danielito Sims MD 05/02/2020 08:34 A
== END 2020-05-01 13:45 | disposition home or self-care (01) ==
LOC: M ED 10:59
DX: S42.211A Unspecified displaced fracture of surgical neck of right humerus, initial encounter for closed fracture (principal); S62.396A Other fracture of fifth metacarpal bone, right hand, initial encounter for closed fracture; W18.39XA Other fall on same level, initial encounter; Y92.018 Other place in single-family (private) house as the place of occurrence of the external cause; E11.9 Type 2 diabetes mellitus without complications; I10 Essential (primary) hypertension; J45.909 Unspecified asthma, uncomplicated; Z79.899 Other long term (current) drug therapy; Z79.82 Long term (current) use of aspirin; Z79.4 Long term (current) use of insulin; Z88.8 Allergy status to other drugs, medicaments and biological substances

== ENCOUNTER → 2020-05-17 | Outpatient (CLI) | payer OTHER ==
[~2020-05-17] MED LIST changes: +NORC1TAB7 PO; +PERC5TAB12 PO
[2020-06-13 21:15] LABS: BASO # 0.1 10^3/uL (0.0-0.2); BASO % 1.3 % (0.0-1.0); EOS # 0.1 10^3/uL (0.0-0.5); EOS % 1.1 % (0.0-3.0); HEMATOCRIT 36.9 % (36.0-47.0); HEMOGLOBIN 11.6 g/dl (12.0-15.5); LYMPH # 1.7 10^3/uL (1.5-5.0); LYMPH % 29.5 % (24.0-44.0); MEAN CORPUSCULAR HEMOGLOBIN 28.7 pg (27.0-33.0); MEAN CORPUSCULAR HGB CONC 31.4 g/dl (32.0-36.5); MEAN CORPUSCULAR VOLUME 91.3 fl (80.0-96.0); MONO # 0.5 10^3/uL (0.0-0.8); MONO % 9.6 % (0.0-5.0); NEUTROPHILS # 3.2 10^3/uL (1.5-8.5); NEUTROPHILS % 57.8 % (36.0-66.0); PLATELET COUNT, AUTOMATED 400 10^3/uL (150-450); RED BLOOD COUNT 4.04 10^6/uL (4.00-5.40); WHITE BLOOD COUNT 5.6 10^3/uL (4.0-10.0)
== END ==
LOC: M LAB 12:00
PROVIDERS: ATTEND Nurse Practitioner Family
DX: S42.201A Unspecified fracture of upper end of right humerus, initial encounter for closed fracture (principal); X58.XXXA Exposure to other specified factors, initial encounter; Y92.89 Other specified places as the place of occurrence of the external cause

== ENCOUNTER 2020-07-16 16:38 | Emergency (ER) | payer OTHER ==
[~2020-07-16] VITALS: Ht 167.6 cm; Wt 90.9 kg
[~2020-07-16 16:38] MED LIST changes: -NORC1TAB7 PO
--- NOTE | 2020-07-16 18:21 | REPVR ---
PROCEDURE INFORMATION: Exam: CT Lumbar Spine Without Contrast Exam date and time: 07/16/2020 5:26 PM Age: 60 years old Clinical indication: Injury or trauma; Fall; Initial encounter; Blunt trauma (contusions or hematomas) TECHNIQUE: Imaging protocol: Computed tomography images of the lumbar spine without contrast. Radiation optimization: All CT scans at this facility use at least one of these dose optimization techniques: automated exposure control; mA and/or kV adjustment per patient size (includes targeted exams where dose is matched to clinical indication); or iterative reconstruction. COMPARISON: No relevant prior studies available. FINDINGS: Vertebrae: There is mild compression of the T11 vertebra. No evidence to indicate this is acute. There is no lumbar compression fracture. There is no fracture of the posterior elements. T11-T12: Disc space narrowing. Mild disc bulge. Facet hypertrophy. No central stenosis. Mild left foraminal stenosis. T12-L1: No central stenosis, foraminal stenosis or disc bulge. L1-L2: No central stenosis, foraminal stenosis or disc bulge. L2-L3: No central stenosis, foraminal stenosis or disc bulge. L3-L4: Mild disc bulge and facet and ligament hypertrophy. No central stenosis. Mild foraminal stenosis. L4-L5: T10-T11:: Advanced disc space narrowing with vacuum degeneration of the disc. There is a posterior osteophyte and disc bulge. There is facet arthropathy with asymmetric moderate to severe left foraminal stenosis. Advanced facet arthropathy with mild degenerative spondylolisthesis. There is disc space narrowing with vacuum degeneration of the disc. There is facet arthropathy and hypertrophy of the ligamentum flavum. There is moderate central spinal stenosis. There is moderate to severe foraminal stenosis. L5-S1: Mild disc bulge. Advanced facet arthropathy with moderate left and more severe right foraminal stenosis. Soft tissues: Unremarkable. IMPRESSION: 1. Mild anterior compression of the T11 vertebra. Age cannot be definitively determined, there is no evidence to suggest acute fracture. There is no lumbar fracture. 2. Multilevel degenerative findings detailed above. Electronically signed by: Mauro Rebollar On 07/16/2020 18:20:44 PM
[2020-07-16] MEDS ORDERED: NORC1TAB7 PO (18:37)
[2020-07-16] MEDS ORDERED: OXYCODONE/APAP 5MG/325MG(BULK FOR ED) 1 TABLET PO ONE (18:45)
[2020-07-16 19:06] VITALS: BP 142/82
== END 2020-07-16 19:07 | disposition home or self-care (01) ==
LOC: M ED 16:38
DX: S22.080A Wedge compression fracture of T11-T12 vertebra, initial encounter for closed fracture (principal); M51.36 Other intervertebral disc degeneration, lumbar region; W18.30XA Fall on same level, unspecified, initial encounter; Y92.098 Other place in other non-institutional residence as the place of occurrence of the external cause; I10 Essential (primary) hypertension; E11.9 Type 2 diabetes mellitus without complications; K21.9 Gastro-esophageal reflux disease without esophagitis; M54.9 Dorsalgia, unspecified; G89.29 Other chronic pain; Z88.8 Allergy status to other drugs, medicaments and biological substances; Z79.899 Other long term (current) drug therapy; Z79.891 Long term (current) use of opiate analgesic; Z79.4 Long term (current) use of insulin; Z79.82 Long term (current) use of aspirin

== ENCOUNTER 2020-07-17 09:41 | Emergency (ER) | payer OTHER ==
[~2020-07-17] VITALS: Ht 167.6 cm; Wt 90.9 kg
[~2020-07-17 09:41] MED LIST changes: +NORC1TAB7 PO
[2020-07-17 09:42] VITALS: BP 135/85
== END 2020-07-17 11:04 | disposition home or self-care (01) ==
LOC: M ED 09:41
DX: S22.080D Wedge compression fracture of T11-T12 vertebra, subsequent encounter for fracture with routine healing (principal); X58.XXXA Exposure to other specified factors, initial encounter; Y92.89 Other specified places as the place of occurrence of the external cause; Y93.89 Activity, other specified; Y99.8 Other external cause status; M54.9 Dorsalgia, unspecified; G89.29 Other chronic pain; J45.909 Unspecified asthma, uncomplicated; E11.9 Type 2 diabetes mellitus without complications; I10 Essential (primary) hypertension; Z79.4 Long term (current) use of insulin

== ENCOUNTER → 2020-09-14 | Outpatient (CLI) | payer OTHER ==
[2020-09-14 12:34] LABS: ALBUMIN 3.7 GM/DL (3.2-5.2); ALT/SGPT 31 U/L (12-78); BILIRUBIN,TOTAL 0.6 MG/DL (0.2-1.0); BLOOD UREA NITROGEN 18 MG/DL (7-18); CALCIUM LEVEL 9.6 MG/DL (8.8-10.2); CARBON DIOXIDE LEVEL 27 MEQ/L (21-32); CHLORIDE LEVEL 107 MEQ/L (98-107); CHOLESTEROL LEVEL 184 MG/DL (<200); CHOLESTEROL RISK RATIO 2.453 (<5); CREATININE FOR GFR 0.78 MG/DL (0.55-1.30); GLOMERULAR FILTRATION RATE > 60.0 (>45); GLUCOSE, FASTING 92 MG/DL (70-100); HDL CHOLESTEROL 75 MG/DL (>40); LDL CHOLESTEROL 97 MG/DL (<100); NON-HDL-C 109 MG/DL; SODIUM LEVEL 141 MEQ/L (136-145); TOTAL PROTEIN 6.8 GM/DL (6.4-8.2); TRIGLYCERIDES LEVEL 58 MG/DL (<150)
[2020-09-14 12:34] LABS: MALB URINE SIEMENS 10.6 MG/L; MAU/CREAT RATIO 6.1 MCG/MG (0.0-30.0)
[2020-09-14 14:56] LABS: HEMOGLOBIN A1c 7.6 %
== END ==
LOC: M LAB 10:26
PROVIDERS: ATTEND Internal Medicine Endocrinology, Diabetes & Metabolism
DX: E10.65 Type 1 diabetes mellitus with hyperglycemia (principal); E10.69 Type 1 diabetes mellitus with other specified complication; E78.5 Hyperlipidemia, unspecified

== ENCOUNTER → 2020-10-20 | Outpatient (CLI) | payer OTHER ==
[~2020-10-20] MED LIST changes: -MONT10TA4 PO; +MONT5TAB2 PO
[2020-10-20 11:49] LABS: BASO # 0.1 10^3/uL (0.0-0.2); EOS # 0.1 10^3/uL (0.0-0.5); EOS % 2.3 % (0.0-3.0); HEMATOCRIT 37.5 % (36.0-47.0); HEMOGLOBIN 11.5 g/dl (12.0-15.5); LYMPH # 1.6 10^3/uL (1.5-5.0); LYMPH % 32.4 % (24.0-44.0); MEAN CORPUSCULAR HEMOGLOBIN 28.3 pg (27.0-33.0); MEAN CORPUSCULAR HGB CONC 30.7 g/dl (32.0-36.5); MEAN CORPUSCULAR VOLUME 92.4 fl (80.0-96.0); MONO # 0.5 10^3/uL (0.0-0.8); MONO % 9.7 % (0.0-5.0); NEUTROPHILS # 2.6 10^3/uL (1.5-8.5); NEUTROPHILS % 54.2 % (36.0-66.0); PLATELET COUNT, AUTOMATED 257 10^3/uL (150-450); RED BLOOD COUNT 4.06 10^6/uL (4.00-5.40); WHITE BLOOD COUNT 4.8 10^3/uL (4.0-10.0)
== END ==
LOC: M LAB 10:58
PROVIDERS: ATTEND Physician Assistant Medical
DX: R79.89 Other specified abnormal findings of blood chemistry (principal)

== ENCOUNTER → 2021-01-23 | Outpatient (CLI) | payer OTHER ==
[~2021-01-23] MED LIST changes: +LISI10TA22 PO; -LISI10TA4 PO; +METH-1165 PO; -METH750T2 PO; +MONT10TA10 PO; -MONT5TAB2 PO
[2021-01-23 11:29] LABS: BLOOD UREA NITROGEN 20 MG/DL (7-18); CREATININE FOR GFR 0.74 MG/DL (0.55-1.30); GLOMERULAR FILTRATION RATE > 60.0 (>45)
== END ==
LOC: M LAB 09:32
PROVIDERS: ATTEND Physician Assistant Surgical
DX: S42.211K Unspecified displaced fracture of surgical neck of right humerus, subsequent encounter for fracture with nonunion (principal)

== ENCOUNTER → 2021-01-25 | Outpatient (CLI) | payer OTHER ==
--- NOTE | 2021-01-25 16:28 | REP ---
INDICATION: SPINAL STENOSIS, R/O FX VS HNP. COMPARISON: None. TECHNIQUE: Sagittal T1, T2, stir images of the cervical spine obtained. Axial T1 and T2 weighted images obtained. Total FINDINGS: There is ezdzteql-pz-txssrj multilevel degenerative disc disease with loss of disc height and disc desiccation seen diffusely throughout the cervical spine. There is degenerative mild flattening of the vertebrae, and disc-osteophyte complex formation seen at virtually every cervical level. On the sagittal images, no limiting canal stenosis. Craniovertebral junction is unremarkable. Cervical cord appears normal in its course, caliber and signal characteristics. There is a mild retrolisthesis of C6 on C7. On the STIR images, no significant stir signal abnormality to suggest soft tissue or ligamentous injury. On the review of axial images, At C2-3: Disc-osteophyte complex is eccentric to the right. There is mild right and moderate left foraminal narrowing. There is mild canal stenosis at this level. At C3-4: Disc-osteophyte complex is eccentric to the right. There is zfxufkid-md-grhuzm right foraminal narrowing, mild left foraminal narrowing and mild canal stenosis. At C4-5: Disc-osteophyte complex is eccentric to the right with moderate right and mild left foraminal narrowing and mild canal stenosis. At C5-6: Disc-osteophyte complex is eccentric to the left with utitkdhl-af-ffgvhj left foraminal narrowing kcft-so-dstafgti right foraminal narrowing and bacc-yy-olhqmifd canal stenosis. At C6-7: Disc-osteophyte complex with moderate canal narrowing and at least moderate left and jblk-uf-wuqyctsu right foraminal narrowing. At C7-T1 tbjg-bk-xkszejsg canal narrowing and moderate right and mild left foraminal narrowing. IMPRESSION: 1. Kqrdrhah-mp-tljuzq multilevel degenerative disc disease with disc-osteophyte complex formation and/or thickening of the posterior longitudinal ligament seen at virtually every cervical level. Slight retrolisthesis of C6 on C7. 2. No evidence of high-grade canal stenosis, no evidence of cord impingement or cord compression. No focal or new disc herniation. 3. Multilevel degenerative foraminal narrowing as described, mwbkyrrt-uz-lqeixi on the right at C3-4, bdqljzkb-el-focana on the left at C5-6, at least moderate on the left at C6-7, and moderate on the right at C7-T1. <Electronically signed by Jean Rainey > 01/25/21 [id number]
== END ==
LOC: M PLARAD 13:15
PROVIDERS: ATTEND Orthopaedic Surgery
DX: M48.02 Spinal stenosis, cervical region (principal); M50.322 Other cervical disc degeneration at C5-C6 level; M50.323 Other cervical disc degeneration at C6-C7 level; M50.31 Other cervical disc degeneration, high cervical region

== ENCOUNTER → 2021-02-09 | Outpatient (CLI) | payer OTHER ==
[~2021-02-09] MED LIST changes: +ISOVUE-300 61% 50ML VIAL As Ordered ONE; +LIDOCAINE 1% MDV 20ML VIAL As Ordered ONE; +methylPREDNISolone SUSP 40MG/ML 1ML VIAL (DEPO MEDROL) As Ordered ONE
--- NOTE | 2021-02-09 12:45 | REP ---
INDICATION: OA RT SHOULDER. COMPARISON: None TECHNIQUE: The procedure was performed by ISS[facility] Gardiner, under the direct supervision of Dr. Cruz. The benefits and risks of the procedure were explained to the patient, and an informed consent was obtained. Directly prior to the start of the procedure, a formal time-out was completed in the procedure room. The right glenohumeral joint space was localized using fluoroscopic guidance. The skin was prepped and draped in a sterile fashion. Approximately 5 mL of 1% Lidocaine 10 mg/ml was used as a local anesthetic. Using fluoroscopic guidance, a #22 gauge spinal needle was inserted and advanced into the right glenohumeral joint space. Approximately 1 mL of Isovue 300 was injected to verify placement. Five mL of a solution containing 3 mL 1% lidocaine 10 mg/ml and 2 mL Depo-Medrol 40 milligrams/milliliter was injected into the joint space. The needle was removed and hemostasis was achieved. FINDINGS: The patient tolerated the procedure well and there were no immediate complications. IMPRESSION: 1. Fluoroscopic guided intra-articular pain injection of the right shoulder. 0.1 minutes of fluoroscopy time was utilized for this procedure. Some fluoroscopic images are performed with last image hold technology. These images require no additional radiation. <Electronically signed by Esmer Mijares > 02/09/21 1220 <Electronically signed by Mike Cruz > 02/09/21 1244
== END ==
LOC: M RADPRO 11:16
PROVIDERS: ATTEND Physician Assistant Surgical
DX: M19.011 Primary osteoarthritis, right shoulder (principal)
CPT/HCPCS: 20610; 77002; J1030; Q9967

== ENCOUNTER → 2021-03-11 | Outpatient (CLI) | payer OTHER ==
[~2021-03-11] MED LIST changes: -ISOVUE-300 61% 50ML VIAL As Ordered ONE; -LIDOCAINE 1% MDV 20ML VIAL As Ordered ONE; -methylPREDNISolone SUSP 40MG/ML 1ML VIAL (DEPO MEDROL) As Ordered ONE
[2021-03-11 12:41] LABS: HEMOGLOBIN A1c 7.4 %
[2021-03-11 13:01] LABS: ALBUMIN 3.8 GM/DL (3.2-5.2); ALT/SGPT 34 U/L (12-78); BILIRUBIN,TOTAL 0.7 MG/DL (0.2-1.0); BLOOD UREA NITROGEN 23 MG/DL (7-18); CALCIUM LEVEL 9.1 MG/DL (8.8-10.2); CARBON DIOXIDE LEVEL 27 MEQ/L (21-32); CHLORIDE LEVEL 109 MEQ/L (98-107); CHOLESTEROL LEVEL 168 MG/DL (<200); CHOLESTEROL RISK RATIO 2.181 (<5); CREATININE FOR GFR 0.91 MG/DL (0.55-1.30); GLOMERULAR FILTRATION RATE > 60.0 (>45); GLUCOSE, FASTING 169 MG/DL (70-100); HDL CHOLESTEROL 77 MG/DL (>40); LDL CHOLESTEROL 80 MG/DL (<100); MAGNESIUM LEVEL 2.4 MG/DL (1.8-2.4); NON-HDL-C 91 MG/DL; POTASSIUM SERUM 4.2 MEQ/L (3.5-5.1); SODIUM LEVEL 141 MEQ/L (136-145); TOTAL PROTEIN 7.2 GM/DL (6.4-8.2); TRIGLYCERIDES LEVEL 57 MG/DL (<150)
[2021-03-11 13:02] LABS: CREATININE, URINE 24.6 MG/DL; MALB URINE SIEMENS < 5.0 MG/L; MAU/CREAT RATIO 20.3 MCG/MG (0.0-30.0)
[2021-03-13 11:43] LABS: PTH INTACT 83.3 PG/ML (18.5-88.0); TOTAL 25(OH) VITAMIN D 54.7 NG/ML (30.0-100.0)
== END ==
LOC: M LAB 11:30
PROVIDERS: ATTEND Internal Medicine Endocrinology, Diabetes & Metabolism
DX: E10.649 Type 1 diabetes mellitus with hypoglycemia without coma (principal); E55.9 Vitamin D deficiency, unspecified; E78.5 Hyperlipidemia, unspecified

== ENCOUNTER → 2021-04-26 | Outpatient (REF) | payer OTHER | LOC: M LAB REF 17:05 | PROVIDERS: ATTEND Family Medicine | DX: N39.0 Urinary tract infection, site not specified (principal) ==

== ENCOUNTER → 2021-07-06 | Outpatient (CLI) | payer OTHER ==
--- NOTE | 2021-07-06 09:20 | REPMRS ---
Patient History The patient states she has not had a clinical breast exam in over a year. Patient is postmenopausal. No known family history of cancer. Best views possible on right due to non-healing arm fx No breast complaints today Patient signed the MRS sheet 1st covid vaccine 12/30/20-left arm-Pfizer 2nd covid vaccine 01/20/21-left arm Patient states she has gained weight in the last year, not sure how much Priors done @ [facility] PACS Patient Identification Verified Digital Woman Screen Mammo: July 06, 2021 - Exam #: [id number] Bilateral CC and MLO view(s) were taken. Technologist: Cristina Villeda, Technologist FINDINGS: There are scattered fibroglandular densities. Screening. Digital screening (2D) mammography was performed bilaterally in the CC and MLO projections. Additionally, breast tomosynthesis (3D mammography) was performed bilaterally in the CC and MLO projections. Todays exam was compared to the prior exam/exams. By history, the patient has no complaints of a palpable breast abnormality or other significant breast complaints. The breasts are unchanged in size and shape. There are no sam-soft tissue densities or spiculated masses. There is no internal architectural distortion. Once again, stable benign appearing calcifications are seen.There are no suspicious sam-calcific clusters. Skin thickening or nipple retraction is not present. IMPRESSION: BI-RADS Category 2- Benign Findings. There is no evidence of malignant alteration of the breasts. Followup examination recommended in one year. The Volpara volumetric breast density category is B, there are scattered areas of fibroglandular densities. This mammogram was read with the assistance of [employer],an FDA approved computer aided detection system for mammography. The lifetime Tyrer-Cuzick score is 6.7 % Negative x-ray reports should not delay surgical consultation if a dominant or clinically suspicious mass is present. Not all breast cancers can be identified by mammography. Therefore, we recommend that you continue to perform regular breast self-examination and physical examination and then promptly contact your physician of any concerns or changes. Adenosis and dense breasts may obscure an underlying neoplasm. Assessment: BI-RADS/ACR category 2 mammogram. Benign Findings. Recommendation Routine screening mammogram of both breasts in 1 year. Electronically Signed By: Joe Dow DO 07/06/21 [id number]
== END ==
LOC: M WHC 08:20
PROVIDERS: ATTEND Family Medicine
DX: Z12.31 Encounter for screening mammogram for malignant neoplasm of breast (principal)

== ENCOUNTER → 2021-11-06 | Outpatient (CLI) | payer OTHER ==
[~2021-11-06] MED LIST changes: -MONT10TA10 PO; +MONT10TA97 PO
[2021-11-06 12:08] LABS: HEMOGLOBIN A1c 7.5 %
== END ==
LOC: M LAB 10:47
PROVIDERS: ATTEND Internal Medicine Endocrinology, Diabetes & Metabolism
DX: E10.65 Type 1 diabetes mellitus with hyperglycemia (principal)

== ENCOUNTER → 2022-02-10 | Outpatient (CLI) | payer OTHER ==
[~2022-02-10] MED LIST changes: -OLOP0.1D OU; +OLOP5DRO16 OU
[2022-02-10 12:03] LABS: HEMOGLOBIN A1c 7.7 %
[2022-02-10 12:14] LABS: ALBUMIN 3.7 GM/DL (3.2-5.2); ALT/SGPT 37 U/L (12-78); BILIRUBIN,TOTAL 0.7 MG/DL (0.2-1.0); BLOOD UREA NITROGEN 17 MG/DL (7-18); CARBON DIOXIDE LEVEL 29 MEQ/L (21-32); CHLORIDE LEVEL 107 MEQ/L (98-107); CHOLESTEROL LEVEL 173 MG/DL (<200); CHOLESTEROL RISK RATIO 2.544 (<5); GLOMERULAR FILTRATION RATE > 60.0 (>45); GLUCOSE, FASTING 179 MG/DL (70-100); HDL CHOLESTEROL 68 MG/DL (>40); LDL CHOLESTEROL 88 MG/DL (<100); NON-HDL-C 105 MG/DL; POTASSIUM SERUM 4.5 MEQ/L (3.5-5.1); SODIUM LEVEL 140 MEQ/L (136-145); TOTAL PROTEIN 6.9 GM/DL (6.4-8.2); TRIGLYCERIDES LEVEL 86 MG/DL (<150)
[2022-02-10 12:22] LABS: CREATININE, URINE 39.4 MG/DL; MALB URINE SIEMENS 7.4 MG/L; MAU/CREAT RATIO 18.7 MCG/MG (0.0-30.0)
== END ==
LOC: M LAB 10:54
PROVIDERS: ATTEND Internal Medicine Endocrinology, Diabetes & Metabolism
DX: E10.65 Type 1 diabetes mellitus with hyperglycemia (principal); E78.5 Hyperlipidemia, unspecified

== ENCOUNTER → 2022-03-31 | Outpatient (CLI) | payer OTHER ==
[2022-03-31 11:32] LABS: BASO # 0.1 10^3/uL (0.0-0.2); BASO % 1.1 % (0.0-1.0); EOS # 0.2 10^3/uL (0.0-0.5); HEMOGLOBIN 12.2 g/dl (12.0-15.5); LYMPH # 1.8 10^3/uL (1.5-5.0); LYMPH % 32.3 % (24.0-44.0); MEAN CORPUSCULAR HEMOGLOBIN 28.7 pg (27.0-33.0); MEAN CORPUSCULAR HGB CONC 32.1 g/dl (32.0-36.5); MEAN CORPUSCULAR VOLUME 89.4 fl (80.0-96.0); MONO # 0.7 10^3/uL (0.0-0.8); MONO % 11.7 % (2.0-8.0); NEUTROPHILS # 2.9 10^3/uL (1.5-8.5); NEUTROPHILS % 51.5 % (36.0-66.0); PLATELET COUNT, AUTOMATED 263 10^3/uL (150-450); RED BLOOD COUNT 4.25 10^6/uL (4.00-5.40); WHITE BLOOD COUNT 5.6 10^3/uL (4.0-10.0)
[2022-03-31 11:52] LABS: ALT/SGPT 32 U/L (12-78); BLOOD UREA NITROGEN 20 MG/DL (7-18); CREATININE FOR GFR 0.94 MG/DL (0.55-1.30); GLOMERULAR FILTRATION RATE > 60.0 (>45)
[2022-03-31 12:20] LABS: ERYTHROCYTE SEDIMENTATION RATE 21 mm/hr (0-30)
== END ==
LOC: M LAB 10:26
PROVIDERS: ATTEND Internal Medicine Rheumatology
DX: M05.79 Rheumatoid arthritis with rheumatoid factor of multiple sites without organ or systems involvement (principal); Z79.899 Other long term (current) drug therapy

== ENCOUNTER → 2022-08-25 | Outpatient (CLI) | payer OTHER ==
[2022-08-25 11:59] LABS: HEMOGLOBIN A1c 7.7 %
[2022-08-25 12:09] LABS: ALBUMIN 3.5 GM/DL (3.2-5.2); ALT/SGPT 31 U/L (12-78); BILIRUBIN,TOTAL 0.6 MG/DL (0.2-1.0); BLOOD UREA NITROGEN 14 MG/DL (7-18); CALCIUM LEVEL 9.1 MG/DL (8.8-10.2); CARBON DIOXIDE LEVEL 29 MEQ/L (21-32); CHLORIDE LEVEL 108 MEQ/L (98-107); GLOMERULAR FILTRATION RATE > 60.0 (>45); GLUCOSE, FASTING 155 MG/DL (70-100); POTASSIUM SERUM 4.4 MEQ/L (3.5-5.1); SODIUM LEVEL 143 MEQ/L (136-145); TOTAL PROTEIN 6.7 GM/DL (6.4-8.2)
== END ==
LOC: M LAB 11:08
PROVIDERS: ATTEND Internal Medicine Endocrinology, Diabetes & Metabolism
DX: E10.65 Type 1 diabetes mellitus with hyperglycemia (principal)

== ENCOUNTER → 2022-09-27 | Outpatient (CLI) | payer OTHER | LOC: M WHC 08:50 | PROVIDERS: ATTEND Family Medicine | DX: Z12.31 Encounter for screening mammogram for malignant neoplasm of breast (principal); M85.851 Other specified disorders of bone density and structure, right thigh; M85.852 Other specified disorders of bone density and structure, left thigh ==

== ENCOUNTER → 2022-11-25 | Outpatient (CLI) | payer OTHER ==
[~2022-11-25] MED LIST changes: +ALPH600C PO; +B-12100020 PO; +BAYE81TA10 PO; +CITRTAB18 PO; +FLON1SPR; +GABA-1171 PO; +GLUC3SPR; +INSU100V13 SC; +PRED1TABL PO; +PROBCAP14 PO; +VITA200038 PO; +VITMTA PO; +[UNRECOGNIZED DRUG - OTHER] PO
== END ==
LOC: M LABSMTC 10:40
PROVIDERS: ATTEND Anesthesiology
DX: Z01.812 Encounter for preprocedural laboratory examination (principal); Z20.822 Contact with and (suspected) exposure to COVID-19

== ENCOUNTER 2022-11-28 06:46 | Day surgery (SDC) | payer OTHER ==
[~2022-11-28] VITALS: Ht 165.1 cm; Wt 83.8 kg
[~2022-11-28 06:46] MED LIST changes: +NS 1,000 ML IV ONE
[2022-11-28] MEDS ORDERED: propofoL 200 MG/20 ML VIAL As Ordered ONE ×3 (07:34→08:10)
[2022-11-28] MEDS ORDERED: LIDOCAINE 2% 100MG/5ML SDV (FOR ANES.) As Ordered ONE (07:34)
[2022-11-28] MEDS ORDERED: LABETALOL 100MG/20ML VIAL As Ordered ONE (07:36)
[2022-11-28 08:35] VITALS: BP 128/82
== END 2022-11-28 08:51 | disposition home or self-care (01) ==
LOC: M OPP 06:46
PROVIDERS: ATTEND Surgery
DX: Z12.11 Encounter for screening for malignant neoplasm of colon (principal); Z80.0 Family history of malignant neoplasm of digestive organs; D12.3 Benign neoplasm of transverse colon; K63.5 Polyp of colon; K57.30 Diverticulosis of large intestine without perforation or abscess without bleeding; K64.4 Residual hemorrhoidal skin tags; E10.9 Type 1 diabetes mellitus without complications; E78.00 Pure hypercholesterolemia, unspecified; J45.909 Unspecified asthma, uncomplicated; Z79.1 Long term (current) use of non-steroidal anti-inflammatories (NSAID); Z79.4 Long term (current) use of insulin; Z79.891 Long term (current) use of opiate analgesic; Z79.899 Other long term (current) drug therapy; Z88.6 Allergy status to analgesic agent

== ENCOUNTER → 2023-04-13 | Outpatient (CLI) | payer OTHER ==
[~2023-04-13] MED LIST changes: -HYDR200T3 PO; +HYDR200T46 PO; -NS 1,000 ML IV ONE; -OLOP5DRO16 OU; +OLOP5DRO17 OU
[2023-04-13 10:39] LABS: BASO # 0.1 10^3/uL (0.0-0.2); BASO % 1.4 % (0.0-1.0); EOS # 0.1 10^3/uL (0.0-0.5); HEMOGLOBIN 12.7 g/dl (12.0-15.5); LYMPH # 1.6 10^3/uL (1.5-5.0); LYMPH % 30.9 % (24.0-44.0); MEAN CORPUSCULAR HEMOGLOBIN 27.8 pg (27.0-33.0); MEAN CORPUSCULAR VOLUME 89.7 fl (80.0-96.0); MONO # 0.5 10^3/uL (0.0-0.8); MONO % 9.9 % (2.0-8.0); NEUTROPHILS # 2.8 10^3/uL (1.5-8.5); NEUTROPHILS % 55.4 % (36.0-66.0); PLATELET COUNT, AUTOMATED 262 10^3/uL (150-450); RED BLOOD COUNT 4.57 10^6/uL (4.00-5.40); WHITE BLOOD COUNT 5.1 10^3/uL (4.0-10.0)
[2023-04-13 11:11] LABS: CREATININE, URINE 124.7 MG/DL
[2023-04-13 11:12] LABS: MAU/CREAT RATIO 4.8 MCG/MG (0.0-30.0)
[2023-04-13 11:13] LABS: ALKALINE PHOSPHATASE 81 U/L (46-116); ALT/SGPT 39 U/L (7.0-40); AST/SGOT 29 U/L (<34); BILIRUBIN,TOTAL 0.7 MG/DL (0.3-1.2); BLOOD UREA NITROGEN 21 MG/DL (9-23); CALCIUM LEVEL 8.9 MG/DL (8.3-10.6); CARBON DIOXIDE LEVEL 26 MMOL/L (20-31); CHLORIDE LEVEL 107 MMOL/L (98-107); CHOLESTEROL LEVEL 181 MG/DL (<200); CHOLESTEROL RISK RATIO 2.47 (<5); CREATININE FOR GFR 0.68 MG/DL (0.55-1.30); GLOMERULAR FILTRATION RATE > 60.0 (>45); GLUCOSE, FASTING 123 MG/DL (74-106); HDL CHOLESTEROL 73.1 MG/DL (>40); LDL CHOLESTEROL 91.9 MG/DL (<100); NON-HDL-C 107.9 MG/DL; POTASSIUM SERUM 3.9 MMOL/L (3.5-5.1); SODIUM LEVEL 141 MMOL/L (136-145); TOTAL PROTEIN 6.8 G/DL (5.7-8.2); TRIGLYCERIDES LEVEL 80 MG/DL (<150)
== END ==
LOC: M LAB 09:38
PROVIDERS: ATTEND Nurse Practitioner Family
DX: E78.2 Mixed hyperlipidemia (principal)

== ENCOUNTER → 2023-12-28 | Outpatient (CLI) | payer OTHER ==
[~2023-12-28] MED LIST changes: +CELE0.09 PO; -CELE1CAP9 PO; +EZET10TA58 PO; -ZETI10TA16 PO
[2023-12-28 10:07] LABS: HEMOGLOBIN A1c 6.7 % (4.0-6.0)
[2023-12-28 10:19] LABS: ALBUMIN 3.6 G/DL (3.2-5.2); ALKALINE PHOSPHATASE 77 U/L (46-116); ALT/SGPT 39 U/L (7.0-40); AST/SGOT 31 U/L (<34); BILIRUBIN,TOTAL 0.5 MG/DL (0.3-1.2); BLOOD UREA NITROGEN 19 MG/DL (9-23); CALCIUM LEVEL 8.8 MG/DL (8.3-10.6); CARBON DIOXIDE LEVEL 28 MMOL/L (20-31); CHLORIDE LEVEL 109 MMOL/L (98-107); CHOLESTEROL LEVEL 140 MG/DL (<200); CHOLESTEROL RISK RATIO 2.24 (<5); CREATININE FOR GFR 0.74 MG/DL (0.55-1.30); GLOMERULAR FILTRATION RATE > 60.0 (>45); GLUCOSE, FASTING 140 MG/DL (74-106); HDL CHOLESTEROL 62.5 MG/DL (>40); LDL CHOLESTEROL 66.1 MG/DL (<100); NON-HDL-C 77.5 MG/DL; POTASSIUM SERUM 4.8 MMOL/L (3.5-5.1); SODIUM LEVEL 140 MMOL/L (136-145); TOTAL PROTEIN 6.5 G/DL (5.7-8.2); TRIGLYCERIDES LEVEL 57 MG/DL (<150)
[2023-12-28 10:34] LABS: TOTAL 25(OH) VITAMIN D 32.4 NG/ML (20.0-100.0)
== END ==
LOC: M LAB 08:28
PROVIDERS: ATTEND Internal Medicine Endocrinology, Diabetes & Metabolism
DX: E10.649 Type 1 diabetes mellitus with hypoglycemia without coma (principal); E55.9 Vitamin D deficiency, unspecified

== ENCOUNTER 2024-02-19 06:41 | Day surgery (SDC) | payer OTHER ==
[~2024-02-19] VITALS: Ht 162.6 cm; Wt 100.6 kg
[~2024-02-19 06:41] MED LIST changes: +ALLE180T33 PO; +ATOR1TAB21 PO; +METH2.5T48 PO; +THERTAB52 PO
[2024-02-19] MEDS ORDERED: LIDOCAINE 2% 100MG/5ML SDV (FOR ANES.) As Ordered ONE (07:12)
[2024-02-19] MEDS: NS 1,000 ML IV ONE (07:12)
[2024-02-19] MEDS ORDERED: propofoL 200 MG/20 ML VIAL As Ordered ONE (07:12)
[2024-02-19 08:38] VITALS: BP 114/85; TEMP 96.4; O2SAT 97
== END 2024-02-19 08:43 | disposition home or self-care (01) ==
LOC: M OPP 06:41
PROVIDERS: ATTEND Surgery
DX: Z12.11 Encounter for screening for malignant neoplasm of colon (principal); K63.5 Polyp of colon; K57.30 Diverticulosis of large intestine without perforation or abscess without bleeding; K63.89 Other specified diseases of intestine; K64.8 Other hemorrhoids; K64.4 Residual hemorrhoidal skin tags; Z86.010 Personal history of colon polyps

== ENCOUNTER 2024-03-27 11:53 | Emergency (ER) | payer OTHER ==
[~2024-03-27] VITALS: Ht 162.6 cm; Wt 101.4 kg
[2024-03-27 11:54] VITALS: BP 165/76; TEMP 97.2; O2SAT 99
[2024-03-27] MEDS ORDERED: CEPH500C PO (15:57)
[2024-03-27] MEDS: NORCO, ANEXSIA 5/325MG TABLET (HYDROcodone/ACETAMINOPHEN) PO ONE (16:01)
[2024-03-27] MEDS: CEPHALEXIN 500 MG CAP PO ONE (16:02)
== END 2024-03-27 16:06 | disposition home or self-care (01) ==
LOC: M ED 11:53
DX: L03.115 Cellulitis of right lower limb (principal); S93.491A Sprain of other ligament of right ankle, initial encounter; Y92.019 Unspecified place in single-family (private) house as the place of occurrence of the external cause; Y93.9 Activity, unspecified; Y99.9 Unspecified external cause status; W01.0XXA Fall on same level from slipping, tripping and stumbling without subsequent striking against object, initial encounter; E10.9 Type 1 diabetes mellitus without complications; J45.909 Unspecified asthma, uncomplicated; Z88.8 Allergy status to other drugs, medicaments and biological substances; Z79.1 Long term (current) use of non-steroidal anti-inflammatories (NSAID); Z79.2 Long term (current) use of antibiotics; Z79.4 Long term (current) use of insulin; Z79.810 Long term (current) use of selective estrogen receptor modulators (SERMs); Z79.52 Long term (current) use of systemic steroids; Z79.899 Other long term (current) drug therapy

== ENCOUNTER → 2024-04-25 | Outpatient (CLI) | payer OTHER ==
[~2024-04-25] MED LIST changes: +CEPH500C PO
== END ==
LOC: M RAD 09:51
PROVIDERS: ATTEND Allergy & Immunology
DX: J45.40 Moderate persistent asthma, uncomplicated (principal)

== ENCOUNTER 2024-06-13 18:50 | Emergency (ER) | payer OTHER ==
[~2024-06-13] VITALS: Ht 160 cm; Wt 100.0 kg
[2024-06-13] MEDS: BOOSTRIX VACCINE (TETANUS/DIPHTH/ACEL. PERTUSSIS) 0.5ML SYR IM ONE (19:37)
[2024-06-13] MEDS: LIDOCAINE 2% MDV 20ML VIAL SC ONE (20:07)
[2024-06-13] MEDS: BACITRACIN OINTMENT 30GM TUBE TOP STA (20:43)
[2024-06-13 20:48] VITALS: BP 134/64; TEMP 97.7; O2SAT 99
== END 2024-06-13 20:49 | disposition home or self-care (01) ==
LOC: M ED 18:50
DX: S61.012A Laceration without foreign body of left thumb without damage to nail, initial encounter (principal); W26.0XXA Contact with knife, initial encounter; E10.9 Type 1 diabetes mellitus without complications; G56.03 Carpal tunnel syndrome, bilateral upper limbs; M54.50 Low back pain, unspecified; M85.80 Other specified disorders of bone density and structure, unspecified site; Y92.009 Unspecified place in unspecified non-institutional (private) residence as the place of occurrence of the external cause; Y93.89 Activity, other specified; Y99.9 Unspecified external cause status; Z23 Encounter for immunization; Z79.811 Long term (current) use of aromatase inhibitors; Z79.899 Other long term (current) drug therapy; Z79.82 Long term (current) use of aspirin; Z79.02 Long term (current) use of antithrombotics/antiplatelets

== ENCOUNTER 2024-12-13 11:43 | Emergency (ER) | payer OTHER ==
[~2024-12-13] VITALS: Ht 162.6 cm; Wt 101.4 kg
[2024-12-13] MEDS: traMADol 50 MG TAB PO ONE (14:20)
[2024-12-13] MEDS: MORPHINE 2 MG/ML 1ML VIAL IV ONE (16:00)
[2024-12-13] MEDS: ONDANSETRON 4MG 2ML VIAL IV ONE (16:25)
[2024-12-13 17:34] VITALS: BP 136/70; O2SAT 99
[2024-12-13] MEDS ORDERED: PERC5TAB12 PO (17:43)
[2024-12-13 18:01] VITALS: TEMP 97.3
== END 2024-12-13 18:03 | disposition home or self-care (01) ==
LOC: M ED 11:43
DX: S22.060A Wedge compression fracture of T7-T8 vertebra, initial encounter for closed fracture (principal); S22.080A Wedge compression fracture of T11-T12 vertebra, initial encounter for closed fracture; Y92.9 Unspecified place or not applicable; Y93.9 Activity, unspecified; Y99.9 Unspecified external cause status; W01.0XXA Fall on same level from slipping, tripping and stumbling without subsequent striking against object, initial encounter; M54.6 Pain in thoracic spine; E11.9 Type 2 diabetes mellitus without complications; J45.909 Unspecified asthma, uncomplicated; M05.9 Rheumatoid arthritis with rheumatoid factor, unspecified; Z88.1 Allergy status to other antibiotic agents; Z88.8 Allergy status to other drugs, medicaments and biological substances; Z79.1 Long term (current) use of non-steroidal anti-inflammatories (NSAID); Z79.2 Long term (current) use of antibiotics; Z79.4 Long term (current) use of insulin; Z79.52 Long term (current) use of systemic steroids; Z79.899 Other long term (current) drug therapy; Z79.810 Long term (current) use of selective estrogen receptor modulators (SERMs)
CPT/HCPCS: 72082; 72128; 72131; 96374; 96375; 99284; J2405

== ENCOUNTER 2025-08-01 10:18 | Emergency (ER) | payer MEDICARE, OTHER ==
[~2025-08-01] VITALS: Ht 162.6 cm; Wt 94.5 kg
[~2025-08-01 10:18] MED LIST changes: -ALPH600C PO; +ALPH600C2 PO; -GLUC1KIT SC; +GLUC1VIA14 SC; -GLUC3SPR; +GLUC3SPR5; +PRED-1142 PO; -PRED1TABL PO
[2025-08-01] MEDS ORDERED: HYDR-3713 PO (13:20)
[2025-08-01] MEDS ORDERED: PERC5TAB12 PO (13:41)
[2025-08-01] MEDS: PERCOCET 5MG/325MG TAB PO ONE (13:44)
[2025-08-01 14:03] VITALS: BP 146/71; TEMP 97.5; O2SAT 99
== END 2025-08-01 14:05 | disposition home or self-care (01) ==
LOC: M ED 10:18
DX: M80.08XA Age-related osteoporosis with current pathological fracture, vertebra(e), initial encounter for fracture (principal); J45.909 Unspecified asthma, uncomplicated; E11.9 Type 2 diabetes mellitus without complications; Z88.8 Allergy status to other drugs, medicaments and biological substances; Z79.2 Long term (current) use of antibiotics; Z79.1 Long term (current) use of non-steroidal anti-inflammatories (NSAID); Z79.4 Long term (current) use of insulin; Z79.899 Other long term (current) drug therapy

== ENCOUNTER → 2025-08-28 | Outpatient (CLI) | payer MEDICARE ==
[~2025-08-28] MED LIST changes: +HYDR-3713 PO
[2025-08-28 11:38] LABS: BASO # 0.1 10^3/uL (0.0-0.2); BASO % 0.6 % (0.0-1.0); EOS # 0.1 10^3/uL (0.0-0.5); EOS % 0.9 % (0.0-3.0); LYMPH # 1.4 10^3/uL (1.5-5.0); LYMPH % 17.8 % (24.0-44.0); MONO # 0.6 10^3/uL (0.0-0.8); MONO % 7.6 % (2.0-8.0); NEUTROPHILS # 5.6 10^3/uL (1.5-8.5); NEUTROPHILS % 72.6 % (36.0-66.0); PLATELET COUNT, AUTOMATED 258 10^3/uL (150-450)
[2025-08-28 12:09] LABS: ALT/SGPT 34 U/L (7.0-40); AST/SGOT 30 U/L (<34); C REACTIVE PROTEIN QUANTITATIV < 0.50 MG/DL (<1.0); CREATININE FOR GFR 0.80 MG/DL (0.55-1.30); GLOMERULAR FILTRATION RATE 81.7 (>45)
== END ==
LOC: M LAB 11:00
PROVIDERS: ATTEND Physician Assistant Medical
DX: M05.79 Rheumatoid arthritis with rheumatoid factor of multiple sites without organ or systems involvement (principal)